=== PATIENT | female | born 1970 | race Hispanic/Latino ===

== ENCOUNTER 2018-09-13 10:23 | Outpatient (CLI) | payer OTHER ==
--- NOTE | 2018-09-13 14:36 | PET ---
PET CT: HISTORY: A 48-year-old female with recently diagnosed esophageal cancer on biopsy of 08/27/2018. Exam is reques sarah for initial staging. TECHNIQUE: PET scanning with CT attenuation correction was performed from the base of the brain through the prox imal thighs following the intravenous administration of 12.3 mCi [id number] in the left a ntecubital fossa. COMPARISON: None. CORRELATION: None. FINDINGS: There is increased FDG localization of the distal thoracic esophagus with an SUV of 14, consistent wi th malignancy. No daria hypermetabolism is seen in the cervical, mediastinal, hilar, axillary, retrocrural, gastrohe patic, main portal, mesenteric, retroperitoneal, or pelvic lymph nodes. No hypermetabolic pulmonary nodules, liver, adrenal, or skeletal lesions are seen. There physiologic activity in the GI and tracts and the visualized portions of the brain. The CT scan used for attenuation correction demonstrates no evidence of pleural or pericardial effusi ons or ascites. There is a 4.5 cm left adnexal mass which does not demonstrate abnormal FDG localiza tion. The patient is post hysterectomy. IMPRESSION: 1. Esophageal malignancy without evidence of metastatic disease. 2. A 4.5 cm left adnexal mass. This should be evaluated with pelvic ultrasound. POS: [place]
== END 2018-09-13 10:24 | disposition home or self-care (01) ==
LOC: PET 10:23
PROVIDERS: ATTEND Internal Medicine Hematology & Oncology
DX: C15.9 Malignant neoplasm of esophagus, unspecified (principal); N83.8 Other noninflammatory disorders of ovary, fallopian tube and broad ligament
CPT/HCPCS: 78815; A9552

== ENCOUNTER 2018-09-14 21:52 | Observation (INO) | payer OTHER ==
--- NOTE | 2018-09-14 23:45 | RAD ---
XR Chest 1 View Portable HISTORY: Epigastric pain COMPARISON: None FINDINGS: The heart size is normal. The lungs are well expanded without focal areas of consolidation, pneumothorax or pleural effusions. IMPRESSION: No radiographic evidence of acute cardiopulmonary process.
[2018-09-14 23:48] LABS: #Eosinphils 0.2 thou/uL (0.0-0.7); #Lymphocytes 1.7 thou/uL (1.20-3.40); #Monocytes 0.5 thou/uL (0.11-0.59); #Neutrophils 4.7 thou/uL (1.40-6.50); %Basophils 0.6 % (0.0-1.0); %Eosinophils 2.9 % (0.0-10.0); %Lymphocytes 23.4 % (21.0-51.0); %Monocytes 7.1 % (0.0-10.0); %Neutrophils 66.2 % (42.0-75.0); Hemoglobin 12.6 g/dL (12.0-16.0); Mean Corpuscular HGB CONC 33.3 g/dL (32.0-36.0); Mean Corpuscular Hemoglobin 32.6 pg (27.0-31.0); Mean Corpuscular Volume 97.6 fL (78.0-98.0); Mean Platelet Volume 7.6 fL (7.4-10.4); Platelet Count 308 thou/uL (130-400); RBC Distribution Width 12.9 % (11.5-14.5); Red Blood Cell (RBC) Count 3.86 mill/uL (4.20-5.40); White Blood Cell (WBC) Count 7.1 thou/uL (4.8-10.8)
[2018-09-15 00:08] LABS: ALT (SGPT) 18 U/L (8-55); AST (SGOT) 17 U/L (5-34); Albumin 3.9 g/dL (3.5-5.0); Alkaline Phosphatase 97 U/L (40-150); Anion Gap 12 mmol/L (10-20); BUN (Urea Nitrogen) 12 mg/dL (7.0-18.7); Bilirubin, Total 0.8 mg/dL (0.2-1.2); Calc. Creatinine Clearance 0 mL/min (70-130); Calcium 9.3 mg/dL (7.8-10.44); Carbon Dioxide 26 mmol/L (22-29); Chloride 104 mmol/L (98-107); Estimated GFR-MDRD 87; Globulin 3.4 g/dL (2.4-3.5); Glucose 143 mg/dL (70-105); Lipase 10 U/L (8-78); Protein, Total 7.3 g/dL (6.0-8.3); Sodium 138 mmol/L (136-145)
[2018-09-15] MEDS ORDERED: Morphine 4 MG/ML VIAL ONE ×2 (00:41→02:50)
[2018-09-15] MEDS ORDERED: Ondansetron PF 4 MG/2 ML Vial ONE (02:50)
[2018-09-15] MEDS ORDERED: Morphine 4 MG/ML VIAL SLOW IVP PRN ×2 (03:25→08:10)
[2018-09-15] MEDS ORDERED: Ondansetron PF 4 MG/2 ML Vial IVP PRN ×2 (03:26→08:10)
[2018-09-15] MEDS ORDERED: Ondansetron ODT 4 MG TAB SL PRN (03:26)
[2018-09-15] MEDS ORDERED: Sodium Chloride 0.9% 1,000 ML IV SCH (03:30)
[2018-09-15 03:34] VITALS: BMI 41.8
--- NOTE | 2018-09-15 07:39 | CT ---
CT ABDOMEN AND PELVIS WITH CONTRAST: Date: 09/15/18 INDICATION: Abdominal pain. Reference made to abdomen and pelvis CT dated 06/10/13. FINDINGS: Incidentally noted, there is wall thickening of the imaged distal esophagus with adjacent, paraesopha geal soft tissue density that may represent necrotic adenopathy given a central low density. This melony sures approximately 2 cm in diameter. There is mild diminished attenuation of the liver, which may be on the basis of hepatic steatosis. No acute inflammation of the gallbladder is seen. No hydronephros is of either kidney. No adrenal mass. No peripancreatic inflammation. The bowel is incompletely asses sed without the presence of enteric contrast. There is a left adnexal hypodensity, which, when compar ing to prior exam, has increased in volume. Finding measures slightly greater than 5 cm in diameter. No free air. No ascites. Osseous structures reveal no acute process. IMPRESSION: 1. Distal esophageal mass-like prominence, as well as adjacent, presumed necrotic adenopathy. 2. Large left adnexal hypodense mass. Dedicated pelvic ultrasound is warranted to further characteri ze. 3. Additional details are described above. POS: [place]
[2018-09-15] MEDS ORDERED: hydrALAZINE 20 MG/ML VIAL SLOW IVP PRN (08:10)
[2018-09-15] MEDS ORDERED: Acetaminophen 500 MG TAB PO PRN (08:10)
[2018-09-15] MEDS ORDERED: HYDROcodone/Acetaminophen 10/325 mg Tablet PO PRN (08:10)
[2018-09-15] MEDS ORDERED: Ondansetron ODT 4 MG TAB PO PRN (08:10)
[2018-09-15] MEDS: Famotidine 20 MG TAB PO SCH ×2 (08:42→20:04)
[2018-09-15] MEDS: Sodium Chloride 0.9% 1,000 ML IV SCH ×3 (08:43→20:41)
[2018-09-15] MEDS ORDERED: ISOVUE-370 76%-LOCM 1 ML ONE (11:29)
[2018-09-15] MEDS: HYDROcodone/Acetaminophen 10/325 mg Tablet PO PRN ×2 (12:06→18:31)
--- NOTE | 2018-09-15 13:21 | HP ---
PRIMARY CARE PROVIDER: Volodymyr Lara MD CHIEF COMPLAINT: Abdominal pain. HISTORY OF PRESENT ILLNESS: This is a 48-year-old female, who presented to [facility] Emergency Department complaining of less than 1-day history of increased abdominal pain and difficulty swallowing after apparently eating a hot dog. The patient's history significant for recent diagnosis of moderately differentiated adenocarcinoma of the esophagus. However, she has not started the treatment protocol. The patient in early stages of staging currently and will have followup with Medical Oncology in the next 3 to 5 days. The patient states that she typically eats a soft diet due to the esophageal cancer, but attempted to eat a hot dog in the last 24 hours and had increased pain in her abdominal area. The patient had an episode of emesis with the pain and became panicked, calling EMS personnel. The patient states she has some pain medication at home including [place], but was unable to take this due to the accelerated pain that she experienced. The patient states most of the pain localizes in the midepigastric region with some radiation to the central portion of her chest. The patient states it has improved after receiving IV morphine sulfate in the emergency room as well as Zofran. The patient was also treated with IV fluids. The patient states her bowel movements have been regular and denies any hematemesis or melena. The patient denies any specific fever, chills, or shortness of breath. PAST MEDICAL HISTORY: Moderately differentiated esophageal adenocarcinoma. PAST SURGICAL HISTORY: 1. Status post hysterectomy. 2. Status post EGD confirming esophageal mass. CURRENT MEDICATIONS: [place] 10/325 mg 1 to 2 tablets p.o. q.4 to 6 hours p.r.n. ALLERGIES: NO KNOWN DRUG ALLERGIES. FAMILY HISTORY: No inheritable diseases per the patient's report. SOCIAL HISTORY: The patient resides in [place], [place]. Unemployed. Drinks alcohol weekly. No tobacco or illicit drug use. REVIEW OF SYSTEMS: CONSTITUTIONAL: Negative for weight loss or gain, ability to conduct usual activities. SKIN: Negative for rash, itching. EYES: Negative for double vision, pain. ENT/MOUTH: Negative for nose bleeding, neck stiffness, pain, tenderness. CARDIOVASCULAR: Negative for palpitations, dyspnea on exertion, orthopnea. RESPIRATORY: Negative for shortness of breath, wheezing, cough, hemoptysis, fever or night sweats. GASTROINTESTINAL: Negative for poor appetite, abdominal pain, heartburn, nausea, vomiting, constipation, or diarrhea. GENITOURINARY: Negative for urgency, frequency, dysuria, nocturia. MUSCULOSKELETAL: Negative for pain, swelling. NEUROLOGIC/PSYCHIATRIC: Negative for anxiety, depression. ALLERGY/IMMUNOLOGIC: Negative for skin rash, bleeding tendency. Otherwise, negative except as stated per HPI. PHYSICAL EXAMINATION: VITAL SIGNS: On admission; blood pressure 117/66, pulse 81; respiratory rate 20, temperature 97.8 degrees Fahrenheit, and O2 saturation 94% on room air. GENERAL APPEARANCE: This is a 48-year-old female, alert and oriented x3, pleasant, conversant, in no acute distress. HEENT: Pupils are equal, round, and reactive to light and accommodation. Extraocular muscles are intact. No scleral icterus. No conjunctival injection. Nares patent. OP is clear. Teeth in fair repair. NECK: Supple. No cervical adenopathy. No thyromegaly. No carotid bruits. No JVD appreciated. No meningeal signs noted. CHEST: Lungs are clear to auscultation bilaterally. CARDIOVASCULAR: S1 and S2 without noted murmur, rub, or gallop. ABDOMEN: Obese, soft with mild tenderness to palpation in the midepigastric region. No palpable mass. Landmarks are difficult to palpate due to the patient's body habitus. Bowel sounds are positive in all 4 quadrants. EXTREMITIES: Warm and dry with fair turgor. No clubbing, cyanosis, or asymmetric edema appreciated. Pulses palpable distally at the dorsalis pedis, posterior tibial, and popliteal arteries bilaterally. Capillary refill less than 2 seconds. NEUROLOGIC: Cranial nerves II through XII are grossly intact. No focal or lateralizing signs appreciated. PERTINENT LABORATORY AND X-RAY FINDINGS: Complete metabolic profile within normal limits. CBC within normal limits. CT of the abdomen and pelvis dated 09/15/2018, showed distal esophageal mass consistent with esophageal carcinoma. Large left adnexal hypodense mass noted. Portable chest x-ray dated 09/14/2018 showed no acute cardiopulmonary process. EKG dated 09/14/2018 by my interpretation shows sinus mechanism with heart rates in the 70s. Normal R-wave progression noted in the precordial leads. Normal axis. No acute ST-T wave changes appreciated. ASSESSMENT AND PLAN: 1. Abdominal pain secondarily to esophageal adenocarcinoma and likely dysphagia after eating a meal. We will continue supportive management including IV fluids with normal saline at 75 mL/h. Morphine sulfate 4 mg IV q.4 hours p.r.n. Serial abdominal exams. 2. Moderately differentiated esophageal adenocarcinoma. We will continue supportive management. Medical Oncology consultation. The patient is currently under no specific treatment plan in the process of staging as an outpatient. 3. Nausea and vomiting secondarily to abdominal pain, improved. We will continue intravenous normal saline at 75 mL/h. Zofran 4 mg IV q.6 hours p.r.n. 4. Dysphagia secondarily to moderately differentiated esophageal adenocarcinoma. We will initiate trial of mechanical soft diet and monitor clinical response. Continue Pepcid 20 mg p.o. b.i.d. 5. Prophylaxis. SCDs while in bed. Pepcid 20 mg p.o. b.i.d. 6. Code status is full. Surrogate medical decision maker is Monique Bravo. Job ID: [id number]
[2018-09-16] MEDS ORDERED: Lorazepam 0.5 MG TAB PO PRN (00:56)
[2018-09-16] MEDS ORDERED: Morphine IR Tab 15 MG TAB PO PRN (00:56)
[2018-09-16] MEDS: Famotidine 20 MG TAB PO SCH (07:07)
[2018-09-16] MEDS: Sodium Chloride 0.9% 1,000 ML IV SCH (07:08)
[2018-09-16] MEDS ORDERED: Morphine ER 15 MG TAB PO SCH (09:00)
--- NOTE | 2018-09-16 09:30 | CT ---
CT CHEST WITH CONTRAST: Date: 09/16/18 Multiple axial tomograms obtained through chest with IV enhancement. INDICATION: Esophageal adenocarcinoma. Correlation made to PET CT dated 09/13/[address] dated 09/15/18. No prior chest CT ronnie ilable. FINDINGS: The lungs are well aerated and are clear. No infiltrate or effusion. Minimal atelectasis in the poste rior left lung base. Review of the mediastinum reveals mural thickening of the distal esophagus, unch anged in appearance from the CT of 09/15/18. There is an adjacent lymph node located in the lower chandra[address] st just above the diaphragm located anterior to the aorta and abutting the right wall of the esophagu s measuring 2.2 cm. Just beyond the diaphragmatic hiatus in the upper abdomen, precrural location, just inferior to the E G junction, are two enlarged lymph nodes, each measuring approximately 2.0 cm. Nonspecific mediastinal paratracheal lymph nodes are seen in the upper mediastinum. These are subcent imeter. Nonspecific bilateral axillary lymph nodes measuring up to 1.0 cm. Thyroid is unremarkable. Osseous s tructures unremarkable. IMPRESSION: Mural thickening of distal esophagus with associated adenopathy in the lower chest and upper abdomen as described. POS: OFF
[2018-09-16] MEDS ORDERED: ISOVUE-370 76%-LOCM 1 ML ONE (12:57)
[2018-09-16 16:21] VITALS: BP 118/80; TEMP 98.2
--- NOTE | 2018-09-17 11:31 | CON ---
DATE OF CONSULTATION: 09/15/2018 HISTORY OF PRESENT ILLNESS: Ms. Chase is a 48-year-old female with a recent diagnosis of esophageal adenocarcinoma, who presented to the emergency room with intractable abdominal pain. She states she was taking hydrocodone at home and it was not working. She is also quite nervous and anxious and was tearful on the phone when she called and was proceeding to the emergency room. She states that now her pain is marginally better with the morphine that she is getting, but she still hurts on the left side. She denies any chest pain or other back pain or bone pain. She is here simply for pain control. PAST MEDICAL HISTORY: Recent diagnosis of esophageal cancer. CURRENT MEDICATIONS: 1. Tylenol p.r.n. 2. [place] 10/325 one tab p.o. q.4 hours p.r.n. 3. Pepcid 20 mg p.o. b.i.d. 4. Hydralazine 10 mg IV q.4 hours p.r.n. 5. Morphine 4 mg IV q.4 hours p.r.n. 6. Zofran ODT 4 mg p.o. q.6 hours p.r.n. ALLERGIES: NO KNOWN DRUG ALLERGIES. SOCIAL HISTORY: She is here with a very large family. She lives in the [facility]. She denies excessive tobacco or alcohol use. REVIEW OF SYSTEMS: Otherwise, 10-point review of systems is negative. FAMILY HISTORY: No history of GI or esophageal malignancies that she is aware of. PHYSICAL EXAMINATION: GENERAL: She is quite obese, in no acute distress. She is alert, awake, and oriented x3, pleasant. VITAL SIGNS: Temperature 98.0, pulse 73, respirations 18, O2 saturations 97% on room air, blood pressure 114/76. HEENT: Extraocular muscles are intact. Pupils are reactive to light. She has no oral cavity lesions. NECK: Supple without lymphadenopathy. CARDIOVASCULAR: Regular rhythm. LUNGS: Clear to auscultation bilaterally. ABDOMEN: Morbidly obese, soft. Tender in the left upper quadrant and mid epigastric area, but no rebounding or guarding. EXTREMITIES: No edema. LABORATORY DATA: White blood cell count 7.1, hemoglobin 12.6, platelets 308. Sodium 138, potassium 4.0, chloride 104, CO2 of 26, creatinine 0.7, glucose 143. CT of the abdomen and pelvis done in the emergency room showed a distal esophageal mass like prominence as well as adjacent presumed necrotic adenopathy, the result was large adnexal mass seen. PET scan done prior to this admission shows esophageal motility without evidence of metastatic disease, but there was a 4.5 cm left adnexal mass which needed to evaluated with pelvic ultrasound. ASSESSMENT: 1. Ms. Chase is a 48-year-old female with intractable abdominal pain secondary to esophageal adenocarcinoma. 2. Anxiety. PLAN: 1. I would recommend that we add long-acting morphine at a low dose, so hopefully she can stay ahead of her abdominal pain. 2. I would recommend adding anxiolytics. 3. She can follow up with us as an outpatient. Job ID: [id number]
--- NOTE | 2018-09-18 02:21 | DIS ---
DATE OF ADMISSION: 09/15/2018 DATE OF DISCHARGE: 09/16/2018 ADMITTING DIAGNOSES: Abdominal pain and esophageal adenocarcinoma. DISCHARGE DIAGNOSES: Abdominal pain, resolved. Esophageal adenocarcinoma, stable. HOSPITAL COURSE: This is a 48-year-old female presented to the hospital with significant abdominal pain. The patient was admitted to Internal Medicine Team, given pain medications, pain management as well. Had a consultation done with Oncology and a CT scan of her chest as well during her stay here. The patient's CT scan of her chest showed mural thickening of the distal esophagus associated with adenopathy in the lower chest as well as some changes in her upper abdomen consisting of mural thickening. The patient had evaluation done by her oncologist as well, who started her on pain medication. The patient was advised to follow up with oncologist the next day for further management and care, repeat CT scans for her cancer and staging. The patient at point in time of discharge was stable. Denied any nausea, vomiting, diarrhea, constipation, chest pain, fevers, chills, or shortness of breath. Advised once again to follow up with PCP within 1 to 2 weeks for further management and care. The patient's condition was stable. Case and plan discussed with the patient and family and friends at length. They understand and agree with this plan. DISPOSITION: Home. FOLLOWUP: Follow up with PCP within 1 week. Oncology within 1-2 days. MEDICATIONS: See MAR. ACTIVITY: As tolerated with assistance as needed. DIET: Low-fat, low-calorie, high-fiber diet. CONDITION: Stable. PROGNOSIS: Guarded. Case and plan again discussed with the patient and family at length. They understood and agreed with this plan. Job ID: [id number]
== END 2018-09-16 17:15 | disposition home or self-care (01) ==
LOC: ERS 21:52 → T4-B 09-15 02:12
PROVIDERS: ADMIT Hospitalist; ATTEND Hospitalist
DX: C15.9 Malignant neoplasm of esophagus, unspecified (principal); R13.10 Dysphagia, unspecified; R11.2 Nausea with vomiting, unspecified; F41.9 Anxiety disorder, unspecified
CPT/HCPCS: 36415; 71045; 71260; 74177; 80053; 83690; 84484; 85025; 93005; 96361; 96374; 96375; 96376; G0378; J2270; J2405; Q9966

== ENCOUNTER 2018-10-22 16:23 | Emergency (ER) | payer OTHER ==
[~2018-10-22 16:23] MED LIST: ISOVUE-370 76%-LOCM 1 ML ONE
[2018-10-22 17:23] LABS: #Lymphocytes 0.1 thou/uL (1.20-3.40); #Monocytes 0.1 thou/uL (0.11-0.59); #Neutrophils 1.7 thou/uL (1.40-6.50); %Basophils 1.9 % (0.0-1.0); %Eosinophils 2.3 % (0.0-10.0); %Lymphocytes 6.4 % (21.0-51.0); %Monocytes 6.5 % (0.0-10.0); Hemoglobin 11.2 g/dL (12.0-16.0); Mean Corpuscular HGB CONC 34.9 g/dL (32.0-36.0); Mean Corpuscular Hemoglobin 32.7 pg (27.0-31.0); Mean Corpuscular Volume 93.6 fL (78.0-98.0); Mean Platelet Volume 7.2 fL (7.4-10.4); Platelet Count 182 thou/uL (130-400); RBC Distribution Width 12.6 % (11.5-14.5); Red Blood Cell (RBC) Count 3.43 mill/uL (4.20-5.40)
[2018-10-22 17:47] LABS: ALT (SGPT) 12 U/L (8-55); AST (SGOT) 10 U/L (5-34); Albumin 3.6 g/dL (3.5-5.0); Alkaline Phosphatase 77 U/L (40-150); Anion Gap 12 mmol/L (10-20); BUN (Urea Nitrogen) 13 mg/dL (7.0-18.7); Bilirubin, Total 0.6 mg/dL (0.2-1.2); Calc. Creatinine Clearance 0 mL/min (70-130); Calcium 8.8 mg/dL (7.8-10.44); Carbon Dioxide 26 mmol/L (22-29); Chloride 104 mmol/L (98-107); Estimated GFR-MDRD Greater than 90; Globulin 2.9 g/dL (2.4-3.5); Glucose 145 mg/dL (70-105); Potassium 3.7 mmol/L (3.5-5.1); Protein, Total 6.5 g/dL (6.0-8.3); Sodium 138 mmol/L (136-145)
--- NOTE | 2018-10-22 17:58 | CT ---
EXAM: CT chest, abdomen, and pelvis with IV contrast: HISTORY: Left upper quadrant abdominal pain. Adenocarcinoma of esophagus. COMPARISON: CT thorax on 09/16/[address] abdomen and pelvis on 09/15/2018. FINDINGS: CT THORAX: Lungs: No consolidation, suspicious pulmonary nodule, or mass. Minimal atelectasis is present in the lingula and at the left lung base. Pleura: No pleural effusion. Lymph nodes: As noted on the prior exam, there is an enlarged lymph node in the left paraesophageal l ocation just anterior to the thoracic aorta measuring 1.4 cm in short axis dimension. A few additional smaller mediastinal lymph nodes are seen, but no additional enlarged lymph nodes are appre ciated. Mediastinum: There is thickening of the distal esophagus circumferentially which was also noted on pr ior exam. Chest wall: No abnormalities. Osseous structures: There is a hemangioma seen in the T4 vertebral body. Mild degenerative changes ar e seen in the thoracic spine. No additional lytic or sclerotic osseous lesions are seen. CT ABDOMEN AND PELVIS: Liver: Few scattered tiny subcentimeter hypodense lesions are seen in each lobe of the liver which ar e too small to further characterize. There are at least 4 tiny hypodense lesions visualized. These hypodense lesions are not seen on the prior study. Gallbladder: Within normal limits. \ Pancreas: Within normal limits. Spleen:Splenic granulomata are visualized. Adrenal glands: Within normal limits. Kidneys: Within normal limits. Urinary Bladder: Decompressed but otherwise within normal limits for decompressed appearance. Reproductive organs: Uterus is not visualized likely related to hysterectomy. The previously describe d hypodense cystic masslike structure in the left adnexa has decreased in size previously measuring 5.2 cm. This area has the appearance of the patient's left ovary with small follicle now present with in the ovary. Previously noted larger cystic structures likely related to interval decrease in size of left ovarian cyst. Bowel: Normal in caliber. Adenopathy:Previously noted mildly enlarged lymph node just inferior to the GE junction in the upper abdomen is again seen but is smaller in size in the current exam. This previously measured 2.1 cm in maximal dimension on prior study and now measures 1.4 cm in maximal dimension. No additional enlar ged lymph nodes are seen. Peritoneum: No free fluid or fluid collection is seen. No free intraperitoneal gas is identified. Abdominal wall: No abnormalities seen. Osseous structures: There is a sclerotic density seen within the right ischium demonstrating characte ristics most compatible with a bone island. No additional lytic or sclerotic osseous lesions are seen. IMPRESSION: 1. Stable mural thickening involving the distal esophagus likely corresponding to patient's known dara nocarcinoma of the esophagus. Closely adjacent left paraesophageal enlarged lymph node is present. 2. Subcentimeter too small to characterize hypodense lesions in each lobe of the liver. These hypoden se lesions were not visualized on prior exam. Tiny metastatic lesions cannot be entirely excluded. 3. Hysterectomy. 4. Interval decrease in size of left adnexal cystic lesion.
[2018-10-22] MEDS ORDERED: Morphine 4 MG/ML VIAL ONE (19:30)
[2018-10-22] MEDS ORDERED: Pantoprazole 40 MG VIAL ONE (19:30)
[2018-10-22] MEDS ORDERED: Ondansetron PF 4 MG/2 ML Vial ONE (19:30)
[2018-10-22] MEDS ORDERED: Sucralfate 1 GM/10 ML UDCUP ONE (19:30)
== END 2018-10-22 21:23 | disposition home or self-care (01) ==
LOC: ERS 16:23
DX: K20.9 Esophagitis, unspecified (principal)
CPT/HCPCS: 36415; 71260; 74177; 80053; 85025; 86850; 86900; 86901; 93005; C9113; J2270; J2405

== ENCOUNTER 2018-11-04 10:58 | Observation (INO) | payer OTHER ==
[2018-11-04] MEDS ORDERED: Morphine 4 MG/ML VIAL ONE ×2 (11:54→15:21)
[2018-11-04] MEDS ORDERED: Ondansetron PF 4 MG/2 ML Vial ONE (11:54)
[2018-11-04 12:16] LABS: #Lymphocytes 0.1 thou/uL (1.20-3.40); #Monocytes 0.1 thou/uL (0.11-0.59); #Neutrophils 1.9 thou/uL (1.40-6.50); %Eosinophils 0.8 % (0.0-10.0); %Lymphocytes 5.3 % (21.0-51.0); %Monocytes 4.8 % (0.0-10.0); %Neutrophils 89.1 % (42.0-75.0); Hemoglobin 11.8 g/dL (12.0-16.0); Mean Corpuscular HGB CONC 34.8 g/dL (32.0-36.0); Mean Corpuscular Hemoglobin 32.4 pg (27.0-31.0); Mean Platelet Volume 7.8 fL (7.4-10.4); Platelet Count 129 thou/uL (130-400); RBC Distribution Width 13.5 % (11.5-14.5); Red Blood Cell (RBC) Count 3.66 mill/uL (4.20-5.40); White Blood Cell (WBC) Count 2.1 thou/uL (4.8-10.8)
[2018-11-04 12:24] LABS: BHCG - Serum Negative (NEGATIVE); Pregs Control Background? CLEAR/WHITE (CLR/WHITE); Pregs Control Bar Appear? YES (CONTROL BAR)
[2018-11-04 12:37] LABS: ALT (SGPT) 16 U/L (8-55); AST (SGOT) 13 U/L (5-34); Alkaline Phosphatase 87 U/L (40-150); Anion Gap 14 mmol/L (10-20); BUN (Urea Nitrogen) 14 mg/dL (7.0-18.7); Bilirubin, Total 1.6 mg/dL (0.2-1.2); Calc. Creatinine Clearance 0 mL/min (70-130); Calcium 9.1 mg/dL (7.8-10.44); Carbon Dioxide 24 mmol/L (22-29); Chloride 102 mmol/L (98-107); Estimated GFR-MDRD Greater than 90; Glucose 153 mg/dL (70-105); Lipase Less than 4 U/L (8-78); Sodium 136 mmol/L (136-145)
[2018-11-04] MEDS ORDERED: Bacitracin Zinc 1 Packet ONE (12:57)
[2018-11-04] MEDS ORDERED: Sucralfate 1 GM/10 ML UDCUP ONE (12:57)
[2018-11-04] MEDS ORDERED: Lidocaine Viscous Sol 2% 15 ml UD Cup ONE (13:15)
[2018-11-04] MEDS ORDERED: Mag-Al 1200 mg/1200 mg/30 ML UDCUP ONE (13:15)
--- NOTE | 2018-11-04 13:21 | CT ---
CT OF THE ABDOMEN AND PELVIS WITH CONTRAST: COMPARISON: 09/15/2018. HISTORY: Stage II esophageal adenocarcinoma with stabbing left upper quadrant abdominal pain that radiates to the back. This is intermittent. TECHNIQUE: Multiple contiguous axial images were obtained in a CT of the abdomen and pelvis with contrast. Fide nal reformats were performed. FINDINGS: The patient is status post hysterectomy. The liver, gallbladder, kidneys, adrenal glands, and pancre as are unremarkable. Calcifications in the spleen are from prior granulomatous disease. The large and small bowel are unremarkable. The appendix is normal. No abdominal or pelvic lymphade nopathy are seen. There is questionable circumferential thickening of the distal esophagus seen on the uppermost images . There is a 1.6 cm nodule anterior to the aorta which may represent an enlarged paraesophageal lymp h node. The visualized inferior thorax is otherwise unremarkable. No suspicious osseous lesions are seen. The abdominal wall soft tissues are unremarkable. IMPRESSION: 1. No evidence of acute intraabdominal/pelvic abnormality. 2. Possible circumferential distal esophageal thickening. This likely represent the patient's known esophageal malignancy with an adjacent enlarged paraesophageal lymph node. POS: [facility]
[2018-11-04 14:18] LABS: Bilirubin Negative (Negative); Blood, Urine Negative (Negative); Clarity CLEAR (Clear); Glucose, Urine (Dipstick) 100 mg/dL (Negative); Leukocyte Negative (Negative); Nitrite Negative (Negative); Protein, Urine (Dipstick) Negative (Neg-Trace)
[2018-11-04 14:25] LABS: Specific Gravity, Urine 1.058 (1.002-1.036)
[2018-11-04] MEDS ORDERED: Promethazine HCl 25 MG/ML VIAL ONE (15:22)
[2018-11-04] MEDS ORDERED: Dexamethasone 10 MG/ML VIAL ONE (15:24)
[2018-11-04] MEDS ORDERED: Promethazine HCl 25 MG/ML VIAL IM/IV PRN (16:43)
[2018-11-04] MEDS ORDERED: Ondansetron PF 4 MG/2 ML Vial IVP PRN (16:43)
[2018-11-04] MEDS ORDERED: Dexamethasone 10 MG in Sodium Chloride 0.9% 50 ML IVPB SCH (16:45)
[2018-11-04] MEDS ORDERED: Morphine 2 MG/ML SYRINGE SLOW IVP PRN (17:07)
[2018-11-04] MEDS ORDERED: Senokot S 8.6-50 MG TAB PO PRN (17:08)
[2018-11-04] MEDS ORDERED: HYDROcodone/Acetaminophen 10/325 mg Tablet PO PRN ×2 (17:08)
[2018-11-04] MEDS ORDERED: Acetaminophen 325 MG TAB PO PRN (17:08)
[2018-11-04] MEDS ORDERED: Lorazepam 0.5 MG TAB PO PRN (17:08)
[2018-11-04] MEDS ORDERED: ISOVUE-370 76%-LOCM 1 ML ONE (17:17)
[2018-11-04] MEDS: Sodium Chloride 0.9% 1,000 ML IV SCH (17:36)
[2018-11-04 17:39] VITALS: BMI 40.5
[2018-11-04] MEDS: Pantoprazole 40 MG VIAL IVP SCH (20:47)
[2018-11-04] MEDS: Sucralfate 1 GM TAB PO SCH (20:47)
[2018-11-04] MEDS ORDERED: Dexamethasone 10 MG/ML VIAL SLOW IVP SCH (23:00)
--- NOTE | 2018-11-04 23:18 | HP ---
PRIMARY CARE PHYSICIAN: Volodymyr Lara MD CHIEF COMPLAINT: Abdominal pain, nausea, vomiting. HISTORY OF PRESENT ILLNESS: Ms. Chase is a pleasant 48-year-old female with a past medical history of esophageal adenocarcinoma, who had presented to [facility] earlier today after she experienced increased abdominal pain along with nausea, vomiting x2 episodes. She states symptoms started yesterday afternoon when she had noticed that her blood pressure slowly dropping and she overall did not feel well. She states that she has undergone several treatments of chemo and radiation, and she is scheduled to undergo her last round of radiation and chemotherapy this week with radiation tomorrow morning with Dr. Leger. She states that her primary oncologist is Dr. Laboy. The ED staff contacted Dr. Fuentes, who is now consulted, who had recommended the patient be started on IV Decadron, IV Zofran and Phenergan along with some IV normal saline for hydration. It was also recommended the patient be brought in under observation for close monitoring overnight and possibly discharged in the next 24 to 48 hours. The patient had denied any fever, chills, any headache, blurred vision, dizziness, any chest pain, palpitations. She states that she has had about 2 episodes of vomiting, which had contained a green yellow emesis. She was recently seen in the emergency department and started on Carafate along with Protonix, which has helped with her symptoms. She had denied any diarrhea or constipation. However, she has had problems with this in the past and had tolerated an outpatient [id number] bowel regimen. Currently, the patient's vital signs remained stable with a blood pressure of 108/71, pulse of 101, respirations 17, temp 99.2 degrees Fahrenheit, and O2 saturations 98% on room air. CT abdomen and pelvis was also performed in the emergency department, which showed no evidence of acute intraabdominal pelvic abnormality, however, did show possible circumferential distal esophageal thickening, which is likely passenger relations representative of the underlying esophageal malignancy with an adjacent enlarged paraesophageal lymph node. REVIEW OF SYSTEMS: All other systems reviewed and found to be negative unless mentioned in the HPI. PAST MEDICAL HISTORY: Esophageal adenocarcinoma, currently undergoing chemo and radiation therapy. PAST SURGICAL HISTORY: Hysterectomy. PSYCHIATRIC HISTORY: None. SOCIAL HISTORY: The patient denies any alcohol, tobacco, or illicit drug use. She states she lives at home with family. KNOWN ALLERGIES: No known drug allergies. CURRENT MEDICATIONS: 1. Morphine 50 mg oral twice daily. 2. Zofran ODT 8 mg oral as needed for nausea. 3. Lorazepam 0.5 mg oral as needed for anxiety. 4. Hydrocodone/acetaminophen 10/325 mg 1-2 tabs oral as needed for pain. 5. Protonix 40 mg oral twice daily. 6. Carafate 1 g oral 4 times daily. PHYSICAL EXAMINATION: VITAL SIGNS: BP 108/71, pulse 101, respirations 17, temp 99.2 degrees Fahrenheit, and O2 saturations 97% on room air. GENERAL: The patient is awake, alert, and oriented x3. She is currently lying comfortably in bed and in no acute distress. Family is at bedside. HEENT: Atraumatic, normocephalic. Pupils are round and reactive to light. Extraocular muscles intact. Moist mucous membranes noted. NECK: Soft, supple. Trachea midline. CARDIOVASCULAR: Positive S1 and S2. Regular rate and rhythm. No murmur auscultated. RESPIRATORY: Clear to auscultation bilaterally. No wheezes, rales, or rhonchi. ABDOMEN: Soft. Mild tenderness in the left upper quadrant, otherwise exam benign. Bowel sounds present. MUSCULOSKELETAL: Strength 5+ bilaterally in upper and lower extremities. Moves all extremities equal. Pedal and radial pulses palpable 2+ bilaterally. No edema noted. NEUROLOGIC: Cranial nerves 2 through 12 grossly intact. No focal deficits noted. Speech intact and normal. Gait not assessed. SKIN: Warm, dry, and intact. No rashes. No ulceration noted. PSYCHIATRIC: Good mood and affect. LABORATORY DATA: WBC 2.1, RBC 3.66, hemoglobin 11.8, hematocrit 34, platelet 129. Sodium 136, potassium 4.0, anion gap 14, BUN 14, creatinine 0.66, estimated GFR greater than 90, glucose 153, lactic acid 1.2, calcium 9.1, AST 13, ALT 16. Troponin less than 0.010. Lipase less than 4. Serum negative. Urinalysis shows specific gravity of 1.058 and 100 glucose, otherwise unremarkable. DIAGNOSTIC IMAGING: CT abdomen and pelvis with contrast showed no acute intraabdominal pelvic abnormality, however, did show possible circumferential distal esophageal thickening which could represent patient's known esophageal malignancy with an adjacent enlarged paraesophageal lymph node. ASSESSMENT AND PLAN: 1. Esophageal adenocarcinoma, Dr. Fuentes and Dr. Leger will be consulted during hospital course, she is scheduled for radiation therapy in the morning tomorrow. Dr. Fuentes recommended IV Decadron, IV Zofran and Phenergan along with IV morphine for pain control. She will also be continued on her home regimen. 2. Abdominal pain, nausea, vomiting, as above the patient will be managed with supportive and symptomatic management at this time. 3. Deep venous thrombosis and gastrointestinal prophylaxis. 4. Code status, full code. DISPOSITION: The patient will be treated with symptomatic management at this time and when she is feeling better and is able to better tolerate oral intake, she will likely be discharged home in the next 24 to 48 hours. Job ID: [id number]
[2018-11-04] MEDS: Dexamethasone 10 MG/ML VIAL SLOW IVP SCH (23:44)
[2018-11-05] MEDS: Sodium Chloride 0.9% 1,000 ML IV SCH ×2 (03:39→12:23)
[2018-11-05 05:07] LABS: #Lymphocytes 0.1 thou/uL (1.20-3.40); #Neutrophils 1.5 thou/uL (1.40-6.50); %Basophils 0.6 % (0.0-1.0); %Eosinophils 0.1 % (0.0-10.0); %Lymphocytes 4.5 % (21.0-51.0); %Monocytes 1.2 % (0.0-10.0); %Neutrophils 93.6 % (42.0-75.0); Hemoglobin 11.2 g/dL (12.0-16.0); Mean Corpuscular HGB CONC 34.4 g/dL (32.0-36.0); Mean Platelet Volume 7.6 fL (7.4-10.4); Platelet Count 128 thou/uL (130-400); RBC Distribution Width 13.6 % (11.5-14.5); Red Blood Cell (RBC) Count 3.48 mill/uL (4.20-5.40); White Blood Cell (WBC) Count 1.7 thou/uL (4.8-10.8)
[2018-11-05 05:18] LABS: Anion Gap 10 mmol/L (10-20); BUN (Urea Nitrogen) 12 mg/dL (7.0-18.7); Calc. Creatinine Clearance 186 mL/min (70-130); Calcium 9.2 mg/dL (7.8-10.44); Carbon Dioxide 24 mmol/L (22-29); Chloride 106 mmol/L (98-107); Estimated GFR-MDRD Greater than 90; Glucose 250 mg/dL (70-105); Potassium 4.7 mmol/L (3.5-5.1); Sodium 135 mmol/L (136-145)
[2018-11-05] MEDS: Pantoprazole 40 MG VIAL IVP SCH (07:43)
[2018-11-05] MEDS: Sucralfate 1 GM TAB PO SCH ×2 (07:43→11:39)
[2018-11-05] MEDS: Dexamethasone 10 MG/ML VIAL SLOW IVP SCH (07:43)
[2018-11-05 12:24] VITALS: TEMP 97.4
[2018-11-05 12:38] VITALS: BP 131/95
--- NOTE | 2018-11-05 15:06 | CON ---
DATE OF CONSULTATION: REASON FOR CONSULTATION: Esophageal adenocarcinoma. HISTORY OF PRESENT ILLNESS: A 48-year-old female with stage IV-A esophageal adenocarcinoma, currently on concurrent chemotherapy and radiation with Carbo/Taxol. Last chemotherapy received on October. The patient came to the hospital with nausea, vomiting, and pain and dehydration with hypotension at home. She states since Monday she has been unable to keep herself hydrated. She had constipation and took magnesium citrate, which caused her to have diarrhea in addition to her vomiting and she was very dehydrated. She states she was trying to make it until Monday, so she could come to the clinic for fluids, but was too weak yesterday, so came to the ER and was admitted for IV hydration and antiemetic therapy. Since admission to the hospital, the patient feels "100% better." She has no more nausea at this time and her pain is much better controlled. She denies any fevers, shortness of breath, or other symptoms. REVIEW OF SYSTEMS: Ten-point review of systems negative except as per HPI. PAST MEDICAL HISTORY: Esophageal cancer. PAST SURGICAL HISTORY: Hysterectomy. SOCIAL HISTORY: No alcohol, tobacco, or illicit drug use. ALLERGIES: NO KNOWN DRUG ALLERGIES. CURRENT MEDICATIONS: Reviewed. PHYSICAL EXAMINATION: GENERAL APPEARANCE: The patient is lying in bed, in no acute distress. VITAL SIGNS: Temperature 98.2, pulse 83, respirations 16, saturating 97% on room air, and blood pressure 133/87. HEENT: Normocephalic and atraumatic. NECK: Supple. CARDIOVASCULAR: S1 and S2. No tachycardia noted. RESPIRATIONS: Nonlabored. ABDOMEN: Obese, soft, nondistended, and nontender. NEUROLOGIC: Cranial nerves 2 through 12 grossly intact. PSYCHIATRIC: Awake, alert, and oriented x3. LABORATORY DATA: White blood cells 1.7, hemoglobin 11.2, and platelets 128. Sodium 135, potassium 4.7, BUN 12, creatinine 0.68, glucose 250, and calcium 9.2. IMAGING DATA: CT abdomen and pelvis on November 04, 2018, shows no acute abnormalities, however, does show circumferential distal esophageal thickening and a large paraesophageal lymph node, both consistent with the patient's known cancer. ASSESSMENT AND PLAN: A 48-year-old female with stage IV-A esophageal adenocarcinoma, currently on chemotherapy and radiation, presenting to the hospital with nausea, vomiting, dehydration, and hypotension. The patient has received fluid resuscitation and IV antiemetics and pain control and is doing much better. The patient may be discharged and follow up with me and Dr. Leger in clinic. She has an appointment to see me on , November 08 for her last dose of chemotherapy and will follow with her surgeon the following week. She can continue with and received radiation today. Thank for this consult. Job ID: [id number]
--- NOTE | 2018-11-06 04:42 | DIS ---
DATE OF ADMISSION: 11/04/2018 DATE OF DISCHARGE: 11/05/2018 PRIMARY CARE PHYSICIAN: Volodymyr Lara MD PROCEDURE PERFORMED: CT of the abdomen and pelvis. IMPRESSION: 1. No evidence of acute intraabdominal pelvic abnormality. 2. Possible circumferential distal esophageal thickening, this likely represents the patient's known esophageal malignancy with an adjacent enlarged paraesophageal lymph node. CONSULTATIONS: Dr. Laboy and Dr. Fuentes. HOSPITAL COURSE: The patient is a 48-year-old female, who presented to the ER with a chief complaint of abdominal pain, nausea and vomiting x2 days. She has past medical history of esophageal adenocarcinoma on chemo and radiation by Dr. Laboy. Her next radiation treatment would be today. In the ER, Dr. Fuentes was consulted as the on-call oncologist. He recommended IV fluid resuscitation, Decadron, Zofran, and Phenergan with some morphine for pain control and admitted to the observation unit for 24 to 48 hours monitoring. In the ER, CT was done which was negative for any acute abnormal process and did show some distal esophageal circumferential thickening with adjacent paraesophageal lymph node enlargement, most likely related to the patient's diagnosis of esophageal cancer. The patient was also found to be neutropenic with white blood cell count of 2.1 and upon discharge was 1.7. The patient's symptoms did improve on the antiemetics and pain control with IV fluid resuscitation, and she did attend her radiation therapy today per Dr. Laboy's instructions. MEDICATIONS: 1. [place] 5/325, 1 to 2 tabs p.o. q.4 p.r.n. pain. 2. Lorazepam 0.5 mg p.o. q.4 p.r.n. anxiety. 3. Zofran ODT 4 mg p.o. q.8 p.r.n. nausea and vomiting. 4. Prednisone 10 mg p.o. daily. 5. Promethazine 25 mg p.o. q.6 p.r.n. nausea and vomiting. 6. Carafate 1 g p.o. before meals and at bedtime. 7. Protonix 40 mg p.o. daily. DISPOSITION: Upon physical exam today, the patient reports that she is feeling much better and is ready to go home after receiving her radiation therapy. DISCHARGE INSTRUCTIONS: The patient is to follow up with PCP within the next week. The patient has a standing appointment on , November 08, with Dr. Laboy for her last dose of chemotherapy and will follow up with her surgeon in the following week. The patient is to continue all home medications. Job ID: [id number]
--- NOTE | 2018-11-10 16:51 | EKG ---
Test Reason : Blood Pressure : / mmHG Vent. Rate : 104 BPM Atrial Rate : 104 BPM P-R Int : 120 ms QRS Dur : 068 ms QT Int : 330 ms P-R-T Axes : -01 -21 -11 degrees QTc Int : 433 ms Sinus tachycardia Nonspecific T wave abnormality Abnormal ECG No ST elevation/RI Different axis Confirmed by ADARSH URBANO M.D. ([id number]), metropolitan editor BROOKLYN SMITH ([id number]) on 11/10/2018 4:51:46 PM Referred By: Confirmed By:ADARSH URBANO M.D.
== END 2018-11-05 13:53 | disposition home or self-care (01) ==
LOC: ERS 10:58 → 2SW 17:34
PROVIDERS: ADMIT Family Medicine; ATTEND Family Medicine
DX: E86.0 Dehydration (principal); R10.9 Unspecified abdominal pain; C15.9 Malignant neoplasm of esophagus, unspecified; I95.9 Hypotension, unspecified; D70.9 Neutropenia, unspecified; Z92.21 Personal history of antineoplastic chemotherapy; Z92.3 Personal history of irradiation; Z79.891 Long term (current) use of opiate analgesic; Z79.899 Other long term (current) drug therapy
CPT/HCPCS: 36415; 74177; 77386; 80048; 80053; 81003; 83605; 83690; 84484; 84703; 85025; 93005; 96361; 96365; 96375; 96376; C9113; G0378; J1100; J2270; J2405; J2550; Q9966

== ENCOUNTER 2019-01-20 15:41 | Observation (INO) | payer OTHER ==
[2019-01-20 16:30] LABS: #Eosinphils 0.1 thou/uL (0.0-0.7); #Lymphocytes 0.9 thou/uL (1.20-3.40); #Monocytes 0.5 thou/uL (0.11-0.59); #Neutrophils 4.2 thou/uL (1.40-6.50); %Basophils 0.4 % (0.0-1.0); %Eosinophils 2.2 % (0.0-10.0); %Monocytes 8.9 % (0.0-10.0); %Neutrophils 72.4 % (42.0-75.0); Hemoglobin 13.2 g/dL (12.0-16.0); Mean Corpuscular HGB CONC 34.8 g/dL (32.0-36.0); Mean Corpuscular Hemoglobin 33.7 pg (27.0-31.0); Mean Platelet Volume 6.8 fL (7.4-10.4); Platelet Count 371 thou/uL (130-400); RBC Distribution Width 15.4 % (11.5-14.5); Red Blood Cell (RBC) Count 3.92 mill/uL (4.20-5.40); White Blood Cell (WBC) Count 5.8 thou/uL (4.8-10.8)
[2019-01-20 16:53] LABS: ALT (SGPT) 43 U/L (8-55); AST (SGOT) 52 U/L (5-34); Albumin 3.7 g/dL (3.5-5.0); Alkaline Phosphatase 184 U/L (40-150); Anion Gap 17 mmol/L (10-20); BUN (Urea Nitrogen) 18 mg/dL (7.0-18.7); Bilirubin, Total 0.6 mg/dL (0.2-1.2); Calc. Creatinine Clearance 0 mL/min (70-130); Calcium 9.5 mg/dL (7.8-10.44); Carbon Dioxide 23 mmol/L (22-29); Chloride 101 mmol/L (98-107); Estimated GFR-MDRD Greater than 90; Globulin 3.7 g/dL (2.4-3.5); Glucose 163 mg/dL (70-105); Lipase Less than 4 U/L (8-78); Potassium 4.3 mmol/L (3.5-5.1); Protein, Total 7.4 g/dL (6.0-8.3); Sodium 137 mmol/L (136-145)
--- NOTE | 2019-01-20 17:30 | RAD ---
CHEST ONE VIEW ABDOMEN TWO VIEWS: FINDINGS/IMPRESSION: The heart size is enlarged. There are atherosclerotic changes in the right lung. Small pleural effusi ons may be present. No pneumothoraces are seen. There is a PICC catheter. No free air is seen. Multip le differential fluid levels are present. POS: [facility]
[2019-01-20] MEDS ORDERED: Morphine 4 MG/ML VIAL ONE ×2 (17:37→21:15)
[2019-01-20] MEDS ORDERED: Ondansetron PF 4 MG/2 ML Vial ONE ×2 (17:41→21:22)
--- NOTE | 2019-01-20 18:52 | CT ---
CT ABDOMEN AND PELVIS WITH IV CONTRAST: History: Abdominal pain, nausea, vomiting, dyspnea, chills. Patient had recent esophageal surgery for adenocar cinoma of the esophagus. FINDINGS: There are small bilateral pleural effusions with consolidation/atelectatic changes in the adjacent melchor ng mortensen. There are post op changes of esophageal surgery and a drainage tube in the right lower pos terior chest. No free air, free fluid, or lymphadenopathy is seen in the abdomen or pelvis. There are calcified granulomas in the spleen. There is a small fluid collection along the medial segment of th e left lobe of the liver adjacent to the falciform ligament measuring about 2.5 cm. No calcified gall stones are seen. Small bowel are not abnormally dilated. There is a jejunostomy tube. There is fluid in the colon and rectum. The patient is post hysterectomy. There are degenerative changes in the spin e. There is soft tissue air in the right lower lateral abdominal wall. IMPRESSION: Post op changes and pleural effusions and adjacent infiltrate/atelectatic changes as above. POS: [facility]
[2019-01-20 20:44] LABS: Bilirubin Negative (Negative); Blood, Urine Negative (Negative); Clarity Clear (Clear); Glucose, Urine (Dipstick) Normal (Negative); Leukocyte Negative Leu/uL (Negative); Nitrite Negative (Negative); Protein, Urine (Dipstick) Negative (Neg-Trace); Urobilinogen Normal mg/dL (Less than 2)
[2019-01-20] MEDS ORDERED: Ondansetron PF 4 MG/2 ML Vial IVP PRN ×2 (23:01→23:38)
[2019-01-20] MEDS ORDERED: Ondansetron ODT 4 MG TAB SL PRN (23:01)
[2019-01-20 23:27] VITALS: BMI 37.6
[2019-01-20] MEDS: Morphine 4 MG/ML VIAL SLOW IVP PRN (23:56)
[2019-01-20] MEDS: Sodium Chloride 0.9% 1,000 ML IV SCH (23:58)
[2019-01-21] MEDS: Morphine 4 MG/ML VIAL SLOW IVP PRN ×3 (03:48→12:21)
[2019-01-21] MEDS: Sodium Chloride 0.9% 1,000 ML IV SCH (08:15)
[2019-01-21] MEDS ORDERED: Sodium Chloride 0.9% 1,000 ML IV SCH (12:00)
--- NOTE | 2019-01-21 14:22 | CT ---
Exam: CT angiogram chest with 3-D rendering: HISTORY: Shortness of breath FINDINGS: Moderate left pleural effusion with extensive parenchymal changes in the left lower lobe evidence for atelectasis and/or pneumonia. Moderate somewhat loculated right pleural effusion changes with some pleural-based parenchymal changes evidence for chronic change or subsegmental atelectasis or pneumoni tis. Evidence for prior gastric pull up surgical procedure on the right side. No convincing CT evidence for acute pulmonary embolism. No evidence for aortic aneurysm or dissection. Extensive posto p changes in the upper abdomen. IMPRESSION: No convincing evidence for acute pulmonary embolism. Extensive other findings as above.
[2019-01-21 18:26] VITALS: BP 104/58; TEMP 98.4
--- NOTE | 2019-01-22 00:01 | HP ---
CHIEF COMPLAINT: Abdominal pain, nausea, vomiting, shortness of breath. HISTORY OF PRESENT ILLNESS: Ms. Chase is a 48-year-old female with past medical history of esophageal cancer diagnosed early this year. She had chemo, radiation as well as recently surgery as well in [place], has been having abdominal pain since that time, which is diffuse abdominal pain all over, has been having some nausea, vomiting, dyspnea, which got worse now, thus the patient came to the hospital. She was discharged to the hospital last week. So because of worsening nausea, vomiting, and abdominal pain as well as dyspnea, the patient called the EMS. EMS gave her Zofran on the way to the hospital. The patient gets feeding through G-tube, but still gets some clear liquids by mouth. In the ER, the patient was evaluated, found to have diffuse abdominal pain and was tachycardic as well. Initially, CT scan of the abdomen was normal, but they suspected PE, so she is being admitted to rule out pulmonary embolism. Currently, she has abdominal pain, still has some nausea. PAST MEDICAL HISTORY: 1. Esophageal adenocarcinoma status post chemo and radiation as well as esophagectomy. 2. Status post hysterectomy. CURRENT MEDICATIONS: The patient is on 1. Gabapentin 300 mg q.i.d. 2. Oxycodone 10 mg q.4 hours p.r.n. ALLERGIES: NKDA. FAMILY HISTORY: Nothing contributory. SOCIAL HISTORY: The patient lives with family. No history of smoking. No history of alcohol intake. REVIEW OF SYSTEMS: CARDIOVASCULAR: No chest pain. Has shortness of breath. RESPIRATORY: No fever or cough. GASTROINTESTINAL: Has abdominal pain, nausea, and vomiting. CENTRAL NERVOUS SYMPTOMS: No headache. No dizziness. PHYSICAL EXAMINATION: GENERAL: The patient is alert, awake, oriented x3. VITAL SIGNS: Temperature 98, pulse 99, respiratory rate 20, blood pressure 108/ 60. HEENT: Head is normocephalic, atraumatic. Pupils are equal and reactive. Nasopharynx is pale and dry. Hard and soft palate. No lesions. SKIN: Turgor decreased. NECK: Supple. No JVD. LUNGS: Bilateral air entry present. No rales, no rhonchi. HEART: S1 and S2, regular. ABDOMEN: Soft, diffusely tender. No guarding. No rigidity. Bowel sounds present. RECTAL: Deferred. CENTRAL NERVOUS SYSTEM: No focal deficit. LABORATORY DATA: CBC shows WBC 5.8, hemoglobin 13, hematocrit 38, platelets 371. Metabolic panel; sodium 137, potassium 4.3, chloride 101, CO2 23, blood urea nitrogen 18, creatinine 0.6, glucose 163. Lactic acid 1.2. Troponin less than 0.010. CT of the abdomen unremarkable, acute abdominal series unremarkable. EKG shows normal sinus rhythm, no acute ST-T changes seen. ASSESSMENT: 1. Shortness of breath, tachycardia, rule out pulmonary embolism. 2. Nausea, vomiting. 3. Abdominal pain. 4. Esophageal cancer status post chemo, radiation, and surgery. PLAN: 1. Vital signs q.4 hours. 2. Activity as tolerated. 3. Allergies, NKDA. 4. Hep-Lock. 5. CT angio chest in the morning. 6. Continue home medications. 7. Morphine p.r.n. Job ID: [id number] MTDD
--- NOTE | 2019-01-23 10:05 | DIS ---
DATE OF ADMISSION: 01/20/2019 DATE OF DISCHARGE: 01/21/2019 ADMITTING DIAGNOSES: 1. Abdominal pain with intractable nausea and vomiting. 2. Shortness of breath, tachycardia, rule out pulmonary embolism. 3. Esophageal cancer, status post chemo, radiation, and surgery. FINAL DIAGNOSES: 1. Shortness of breath, tachycardia, improved. No evidence of pulmonary embolism. 2. Nausea and vomiting with abdominal pain, improved. 3. Esophageal cancer. BRIEF SUMMARY OF HOSPITAL COURSE: Ms. Chase is a 48-year-old female, admitted because of nausea, vomiting, shortness of breath. The patient was tachycardic and has also abdominal pain. The patient underwent treatment for esophageal cancer in [place]. Because of worsening pain, nausea, vomiting, and shortness of breath, the patient came to the hospital. She was admitted to rule out pulmonary embolism in view of her tachycardia and shortness of breath and history of cancer. CT angio chest was done and did not show any evidence of pulmonary embolism. The patient's nausea and vomiting were controlled with medications and pain was also controlled with pain medication. The patient looks stable, so she is being discharged because she is supposed to have EGD done the next day at [place], so she is being discharged. At the time of discharge, she was stable. Her vital signs stable. Lungs clear. Heart sounds regular. Abdomen is soft and nontender. Bowel sounds present. DISCHARGE MEDICATIONS: 1. Oxycodone p.r.n. 2. MiraLAX 17 g daily. 3. Gabapentin daily. FOLLOWUP: The patient is going to be followed up in [place] with her cancer doctor. Job ID: [id number]
== END 2019-01-21 17:49 | disposition home or self-care (01) ==
LOC: ERS 15:41 → T4-A 20:41
PROVIDERS: ADMIT Internal Medicine; ATTEND Internal Medicine
DX: J90 Pleural effusion, not elsewhere classified (principal); J98.11 Atelectasis; R11.2 Nausea with vomiting, unspecified; R10.9 Unspecified abdominal pain; Z85.01 Personal history of malignant neoplasm of esophagus
CPT/HCPCS: 36415; 71275; 74022; 74177; 80053; 81003; 83605; 83690; 84484; 85025; 87040; 87086; 93005; 96361; 96374; 96375; 96376; G0378; J2270; J2405; Q9966

== ENCOUNTER 2019-03-13 15:48 | Emergency (ER) | payer OTHER ==
[2019-03-13] MEDS ORDERED: Morphine 4 MG/ML VIAL ONE (16:14)
[2019-03-13] MEDS ORDERED: Ondansetron PF 4 MG/2 ML Vial ONE (16:14)
[2019-03-13 16:26] LABS: #Eosinphils 0.1 thou/uL (0.0-0.7); #Lymphocytes 1.2 thou/uL (1.20-3.40); #Monocytes 0.4 thou/uL (0.11-0.59); #Neutrophils 3.5 thou/uL (1.40-6.50); %Basophils 0.3 % (0.0-1.0); %Eosinophils 2.2 % (0.0-10.0); %Lymphocytes 23.3 % (21.0-51.0); %Monocytes 8.1 % (0.0-10.0); %Neutrophils 66.1 % (42.0-75.0); Hemoglobin 13.3 g/dL (12.0-16.0); Mean Corpuscular HGB CONC 34.3 g/dL (32.0-36.0); Mean Corpuscular Hemoglobin 32.6 pg (27.0-31.0); Mean Corpuscular Volume 95.1 fL (78.0-98.0); Mean Platelet Volume 7.4 fL (7.4-10.4); Platelet Count 250 thou/uL (130-400); RBC Distribution Width 15.8 % (11.5-14.5); Red Blood Cell (RBC) Count 4.08 mill/uL (4.20-5.40); White Blood Cell (WBC) Count 5.2 thou/uL (4.8-10.8)
--- NOTE | 2019-03-13 16:41 | CT ---
EXAM: CT ABDOMEN AND PELVIS HISTORY: Abdominal pain and vomiting onset today. History of esophageal cancer. Esophageal reconstruc tion. Cough. COMPARISON: 01/20/2019, 11/04/2018 Procedure: Multiple contiguous axial images were obtained and a CT of the abdomen and pelvis with IV contrast. C oronal reformats were performed. FINDINGS: Upper GI: There is evidence of a gastric pull-through, incompletely evaluated. Lower Chest: Small bilateral pleural effusions. Consolidation in both lower lobes may represent atele ctasis or scar formation. Aspiration and/or pneumonia cannot be entirely excluded. Interval removal of a right-sided drainage catheter Vessels: Normal caliber aorta. Heart: Normal heart size. No significant pericardial effusion. Abdomen: Portal vein:Patent Gallbladder: No calcified gallstones. Normal caliber wall. Liver: Interval development of a well-circumscribed hypodense focus in the posterior hepatic dome melony suring 2.6 x 2.8 cm. Lesion is not appreciated on the study of October 2018 or January 2019 Pancreas: within normal limits. Spleen: within normal limits. Adrenals: within normal limits. Kidneys: Symmetric enhancement. No obstructive uropathy. Peritoneum: No ascites or free air, no fluid collection. Bowel: Limited evaluation due to the lack of oral contrast administration. No evidence of bowel obstr uction. Ileocecal junction is unremarkable. Normal caliber appendix. Scattered fecal material in a nondistended, nondilated colon. Sigmoid colon diverticulosis, without evidence of ascites. Mesentery and Retroperitoneum: No enlarged mesenteric or retroperitoneal lymph nodes. Abdominal Wall: within normal limits. Pelvis: Reproductive Organs: Surgically absent uterus Pelvis: No mass, lymphadenopathy, free air or free fluid. Bladder: within normal limits. Bones: within normal limits. IMPRESSION: 1. Interval development of a hypodense mass in the posterior hepatic dome. Differential consideration s include a interval metastatic lesion. Parenchymal abscess is a consideration given the findings on previous CT. Clinical correlation is essential. The lesion is not amenable to percutaneous biopsy due to its location 2. Findings with gastric pull-through. Previous noted right-sided pleural fluid has decreased in siz e. 3. Trace left-sided pleural effusion. Transcribed Date/Time: 03/13/2019 6:11 PM
--- NOTE | 2019-03-13 16:44 | CT ---
CTA CHEST WITH CONTRAST, AND 3-D VOLUME RENDERING CLINICAL INDICATION: Pain Comparison exam: 01/21/2019 FINDINGS: Pulmonary embolus:No significant filling defect is identified within the pulmonary arteries. Pulmonary parenchymal consolidation:Mild residual bilateral parenchymal consolidation, decreased from prior exam. Pleural effusion: Mild bilateral pleural fluid, which has decreased in volume. Redemonstration of postoperative findings of esophagectomy and gastric pull-through. There are scattered borderline size mediastinal lymph nodes. Pneumothorax: None Osseous structures: No acute process. IMPRESSION: No acute pulmonary embolus. Additional details are described above.
--- NOTE | 2019-03-13 16:48 | RAD ---
AP CHEST: 03/13/19 HISTORY: Cough and fever. Comparison made to chest film of 09/14/18. There is streaky infiltrate in the right lower lung concerning for inflammatory infiltrate. Left lung appears clear. The heart and mediastinum unremarkable. IMPRESSION: Evidence of right lower lung infiltrate. Upright PA and lateral views would be of benefit for better evaluation. POS: [facility]
[2019-03-13 16:51] LABS: ALT (SGPT) 26 U/L (8-55); AST (SGOT) 35 U/L (5-34); Albumin 4.4 g/dL (3.5-5.0); Alkaline Phosphatase 153 U/L (40-110); Anion Gap 16 mmol/L (10-20); BUN (Urea Nitrogen) 8 mg/dL (7.0-18.7); Bilirubin, Total 1.3 mg/dL (0.2-1.2); CK (CPK) 34 U/L (29-168); Calc. Creatinine Clearance 0 mL/min (70-130); Calcium 10.1 mg/dL (7.8-10.44); Carbon Dioxide 23 mmol/L (22-29); Chloride 103 mmol/L (98-107); Estimated GFR-MDRD 88; Globulin 4.2 g/dL (2.4-3.5); Glucose 137 mg/dL (70-105); Lipase Less than 4 U/L (8-78); Potassium 3.8 mmol/L (3.5-5.1); Protein, Total 8.6 g/dL (6.0-8.3); Sodium 138 mmol/L (136-145)
[2019-03-13 18:37] LABS: Bilirubin Negative (Negative); Blood, Urine Trace (Negative); Clarity Clear (Clear); Glucose, Urine (Dipstick) Normal (Negative); Leukocyte Negative Leu/uL (Negative); Nitrite Negative (Negative); Protein, Urine (Dipstick) 10 mg/dL (Neg-Trace); Squamous Epithelial 21-50 HPF (0-3); Urobilinogen Normal mg/dL (Less than 2)
[2019-03-13 18:42] LABS: Bacteria/HPF 2+ HPF (None Seen)
[2019-03-13 18:43] LABS: RBC/HPF 0-3 HPF (0-3)
== END 2019-03-13 18:40 | disposition home or self-care (01) ==
LOC: ERS 15:48
DX: R10.9 Unspecified abdominal pain (principal)
CPT/HCPCS: 71045; 71275; 74177; 80053; 81003; 81015; 82550; 83605; 83690; 83880; 84484; 85025; 87040; 87804; 93005; 96361; 96374; 96375; J2270; J2405

== ENCOUNTER 2019-03-27 08:57 | Outpatient (CLI) | payer OTHER ==
[2019-03-27] MEDS ORDERED: ISOVUE-370 76%-LOCM 1 ML ONE (09:47)
--- NOTE | 2019-03-27 12:04 | CT ---
CT Abdomen W WO Con History: Esophageal cancer. Liver lesions. Comparison: CT abdomen and pelvis March 13, 2019 Multiple prior examinations dating back to 2012. Findings: Prior gastric pull-through procedure. Small effusions. No significant pericardial fluid. No significant pericardial fluid. Focal fatty infiltration hepatic segment IVY near the falciform lig ament. The hepatic segment VII round mass has no significant internal enhancement with delayed a somewhat pe ripheral capsular bulge. Overall this mass is unchanged in the 2318 exam this lesion was not present on the 01/20/2019 postoperative exam. No hydronephrosis. No new adenopathy. No dilated loops of large or small bowel. No hydronephrosis. Impression: No significant internal enhancement of the hepatic segment VII mass which may reflect a s ubcapsular collection of seroma/phlegmonous material and less likely a metastatic deposit given initially appeared after surgery and there are no other abnormal hepatic masses nor adenopathy. Relat cherie given the relative absence of peripheral hyperenhancement to reflect inflammation, PET/CT may be beneficial..
== END 2019-03-27 08:58 | disposition home or self-care (01) ==
LOC: BICCT 08:57
PROVIDERS: ATTEND Internal Medicine Hematology & Oncology
DX: C15.5 Malignant neoplasm of lower third of esophagus (principal); R93.7 Abnormal findings on diagnostic imaging of other parts of musculoskeletal system
CPT/HCPCS: 74170; Q9966

== ENCOUNTER 2019-04-05 09:03 | Outpatient (CLI) | payer OTHER ==
--- NOTE | 2019-04-05 14:08 | PET ---
PET CT SKULL TO MID THIGH: COMPARISON: CT, 03/27/2019. HISTORY: Esophageal malignancy. TECHNIQUE: A PET/CT was performed from the skull to the mid thigh after administration of 10.7 millicuries of F- 18 FDG. Evaluation was performed on a CSR workstation. FINDINGS: NECK: Nonspecific mild hypermetabolic activity involving left level II lymph node, which measures ulises roximately 9 mm in diameter. CHEST: No areas of hypermetabolic activity. ABDOMEN/PELVIS: There is hypermetabolic activity regarding the hypodense lesion of the medial aspect of the right hepatic lobe, with maximum SUV 5.4. Hypermetabolic activity is predominantly circumferentially located about the periphery of the known hypodense lesion. SKELETON: No areas of hypermetabolic activity. CT images used for attenuation correction show postsurgical change of the mediastinum with evidence o f gastric pull-through status post esophagectomy. There is bilateral pleural-based density and scattered bilateral pulmonary parenchymal opacities, most confluent at the left lower lobe, medially. . IMPRESSION: 1. Peripherally oriented hypermetabolic activity about the patient's known hepatic lesion involving medial aspect of right hepatic lobe. Necrotic malignancy is the diagnosis of exclusion in light of patient's history. 2. 9 mm hypermetabolic left level II lymph node. Transcribed Date/Time: 04/05/2019 2:14 PM
== END 2019-04-05 09:04 | disposition home or self-care (01) ==
LOC: PET 09:03
PROVIDERS: ATTEND Internal Medicine Hematology & Oncology
DX: C15.9 Malignant neoplasm of esophagus, unspecified (principal); K76.89 Other specified diseases of liver
CPT/HCPCS: 78815; A9552

== ENCOUNTER 2019-04-10 11:23 | Day surgery (SDC) | payer OTHER ==
[2019-04-10 12:37] LABS: INR-International Normal Ratio 1.1; PTT 28.6 SEC (22.9-36.1); Prothrombin Time 13.7 SEC (12.0-14.7)
[2019-04-10 15:16] VITALS: BMI 33.9
--- NOTE | 2019-04-10 16:05 | CT ---
CT GUIDED LIVER BIOPSY: CLINICAL HISTORY: Esophageal cancer, liver lesion. PROCEDURE: Informed consent was obtained and the patient was escorted to the procedural suite, placed in supine position. The patient's skin was prepped and draped in a standard sterile fashion and topical anesthesia with buffered 1% lidocaine was performed. After a small skin incision was made, a 20-gauge needle was advanced to the leading edge of the lesion of the medial aspect of the superior right hepatic lobe. After adequate placement was confirmed with CT fluoroscopic imaging, 3 subsequent core specimens were obtained via percutaneous biopsy. These were confirmed with CT fluoroscopic imaging and the specimens were submitted to the pathologist for adequacy. Specimens were deemed adequate for interpretation. Therefore, all devices were then removed from the patient. No unexpected procedural complications were present. The patient was monitored in radiology holding i n stable condition prior to discharge with family member. IMPRESSION: Technically successful percutaneous hepatic biopsy. Pathology results are pending.
== END 2019-04-10 16:05 | disposition home or self-care (01) ==
LOC: CT 11:23
PROVIDERS: ATTEND Internal Medicine Hematology & Oncology
PROC: 0FB03ZX Excision of Liver, Percutaneous Approach, Diagnostic (ICD-10-PCS; principal; 2019-04-10)
DX: C22.7 Other specified carcinomas of liver (principal); K21.9 Gastro-esophageal reflux disease without esophagitis; Z79.899 Other long term (current) drug therapy; Z85.01 Personal history of malignant neoplasm of esophagus
CPT/HCPCS: 36415; 47000; 77012; 85610; 85730; 88307; 88313; 88333; 88342

== ENCOUNTER 2019-05-07 20:13 | Emergency (ER) | payer OTHER ==
[2019-05-07 21:19] LABS: #Monocytes 0.3 thou/uL (0.11-0.59); #Neutrophils 2.8 thou/uL (1.40-6.50); %Basophils 0.2 % (0.0-1.0); %Eosinophils 0.7 % (0.0-10.0); %Lymphocytes 24.4 % (21.0-51.0); %Monocytes 7.5 % (0.0-10.0); %Neutrophils 67.2 % (42.0-75.0); Hemoglobin 11.4 g/dL (12.0-16.0); Mean Corpuscular HGB CONC 34.7 g/dL (32.0-36.0); Mean Corpuscular Hemoglobin 33.4 pg (27.0-31.0); Mean Platelet Volume 6.8 fL (7.4-10.4); Platelet Count 251 thou/uL (130-400); RBC Distribution Width 13.5 % (11.5-14.5); Red Blood Cell (RBC) Count 3.41 mill/uL (4.20-5.40); White Blood Cell (WBC) Count 4.2 thou/uL (4.8-10.8)
[2019-05-07] MEDS ORDERED: Ondansetron PF 4 MG/2 ML Vial ONE (21:34)
[2019-05-07] MEDS ORDERED: Morphine 4 MG/ML VIAL ONE ×2 (21:34→22:46)
[2019-05-07 21:42] LABS: ALT (SGPT) 17 U/L (8-55); AST (SGOT) 32 U/L (5-34); Albumin 3.9 g/dL (3.5-5.0); Alkaline Phosphatase 142 U/L (40-110); Anion Gap 11 mmol/L (10-20); BUN (Urea Nitrogen) 10 mg/dL (7.0-18.7); Bilirubin, Total 0.9 mg/dL (0.2-1.2); Calc. Creatinine Clearance 0 mL/min (70-130); Calcium 9.4 mg/dL (7.8-10.44); Carbon Dioxide 25 mmol/L (22-29); Chloride 104 mmol/L (98-107); Estimated GFR-MDRD 88; Globulin 3.8 g/dL (2.4-3.5); Glucose 122 mg/dL (70-105); Lipase Less than 4 U/L (8-78); Potassium 3.4 mmol/L (3.5-5.1); Protein, Total 7.7 g/dL (6.0-8.3); Sodium 137 mmol/L (136-145)
--- NOTE | 2019-05-07 22:16 | CT ---
CT ABDOMEN AND PELVIS WITH IV CONTRAST: 05/07/19 INDICATIONS: Abdominal pain. Comparison made to recent CT abdomen and pelvis 03/27/19 and 03/13/19. Comparison made to PET CT of . Prior exams have revealed a low density mass in the posterior dome of the liver. FINDINGS: Images through the lung bases show mild posterior left lung base atelectasis or streaky infiltrate. The low density mass in the posterior aspect of the dome of the liver has increased in size. It now m easures 5.2 cm in the axial plane whereas it previously measured 2.8 cm. Recent PET scan had shown hy permetabolic activity suggesting a neoplastic process. Spleen and pancreas unremarkable. Postoperative changes in the epigastric region. A gastric pull thr ough type procedure is again noted. Kidneys unremarkable. Small bowel loops normal caliber. Colon unremarkable. No free fluid or mass lesion seen. IMPRESSION: Enlargement of the liver mass in the posterior dome of the liver which has been previously described and evaluated. No acute intraabdominal process or significant interval change otherwise noted. POS: OFF
[2019-05-07 22:51] LABS: Bilirubin Negative (Negative); Blood, Urine Negative (Negative); Clarity Clear (Clear); Glucose, Urine (Dipstick) Normal (Negative); Leukocyte Negative Leu/uL (Negative); Nitrite Negative (Negative); Protein, Urine (Dipstick) 10 mg/dL (Neg-Trace); Urobilinogen 3 mg/dL (Less than 2)
== END 2019-05-07 23:19 | disposition home or self-care (01) ==
LOC: ERS 20:13
DX: R10.9 Unspecified abdominal pain (principal); Z79.899 Other long term (current) drug therapy
CPT/HCPCS: 74177; 80053; 81003; 83690; 85025; 96361; 96374; 96375; 96376; J2270; J2405

== ENCOUNTER 2019-05-20 15:55 | Inpatient (IN) | payer OTHER ==
[2019-05-20] MEDS ORDERED: Ondansetron PF 4 MG/2 ML Vial ONE ×2 (16:55→20:19)
[2019-05-20] MEDS ORDERED: Fentanyl 100 MCG/2 ML VIAL ONE ×2 (16:55→18:39)
[2019-05-20 17:09] LABS: #Lymphocytes 0.4 thou/uL (1.20-3.40); #Neutrophils 2.9 thou/uL (1.40-6.50); %Basophils 0.7 % (0.0-1.0); %Eosinophils 0.3 % (0.0-10.0); %Lymphocytes 11.1 % (21.0-51.0); %Monocytes 0.5 % (0.0-10.0); %Neutrophils 87.4 % (42.0-75.0); Hemoglobin 10.6 g/dL (12.0-16.0); Mean Corpuscular HGB CONC 34.2 g/dL (32.0-36.0); Mean Corpuscular Hemoglobin 34.4 pg (27.0-31.0); Mean Platelet Volume 7.4 fL (7.4-10.4); Platelet Count 151 thou/uL (130-400); RBC Distribution Width 14.2 % (11.5-14.5); Red Blood Cell (RBC) Count 3.07 mill/uL (4.20-5.40); White Blood Cell (WBC) Count 3.3 thou/uL (4.8-10.8)
[2019-05-20 17:40] LABS: ALT (SGPT) 16 U/L (8-55); AST (SGOT) 33 U/L (5-34); Albumin 3.4 g/dL (3.5-5.0); Alkaline Phosphatase 127 U/L (40-110); Anion Gap 10 mmol/L (10-20); BUN (Urea Nitrogen) 9 mg/dL (7.0-18.7); Bilirubin, Total 0.8 mg/dL (0.2-1.2); Calc. Creatinine Clearance 0 mL/min (70-130); Calcium 7.8 mg/dL (7.8-10.44); Carbon Dioxide 23 mmol/L (22-29); Chloride 107 mmol/L (98-107); Estimated GFR-MDRD Greater than 90; Globulin 3.1 g/dL (2.4-3.5); Glucose 183 mg/dL (70-105); Lipase Less than 4 U/L (8-78); Potassium 4.1 mmol/L (3.5-5.1); Protein, Total 6.5 g/dL (6.0-8.3); Sodium 136 mmol/L (136-145)
[2019-05-20] MEDS ORDERED: Acetaminophen 500 MG TAB ONE (20:19)
[2019-05-20 20:33] LABS: Bilirubin Negative (Negative); Blood, Urine Negative (Negative); Clarity Clear (Clear); Glucose, Urine (Dipstick) Normal (Negative); Leukocyte Negative Leu/uL (Negative); Nitrite Negative (Negative); Protein, Urine (Dipstick) Negative (Neg-Trace); Urobilinogen Normal mg/dL (Less than 2)
[2019-05-20] MEDS ORDERED: Acetaminophen 325 MG TAB PO PRN (22:18)
[2019-05-20] MEDS ORDERED: Ondansetron PF 4 MG/2 ML Vial IVP PRN (22:18)
[2019-05-20] MEDS ORDERED: Ondansetron ODT 4 MG TAB SL PRN (22:18)
[2019-05-20] MEDS ORDERED: HYDROcodone/Acetaminophen 5/325 mg Tablet PO PRN ×2 (22:18)
[2019-05-20] MEDS ORDERED: Morphine 2 MG/ML SYRINGE SLOW IVP PRN (22:19)
[2019-05-20] MEDS: Sodium Chloride 0.9% 1,000 ML IV SCH (23:13)
[2019-05-20] MEDS: Morphine 4 MG/ML VIAL SLOW IVP PRN (23:14)
[2019-05-20 23:43] VITALS: BMI 32.1
[2019-05-21] MEDS: Sodium Chloride 0.9% 1,000 ML IV SCH ×2 (05:43→19:55)
[2019-05-21] MEDS: Morphine 4 MG/ML VIAL SLOW IVP PRN (05:47)
[2019-05-21] MEDS ORDERED: Sodium Chloride 0.9% 1,000 ML IV SCH (10:30)
[2019-05-21] MEDS ORDERED: Ondansetron PF 4 MG/2 ML Vial IVP PRN (10:31)
[2019-05-21] MEDS: HYDROcodone/Acetaminophen 10/325 mg Tablet PO PRN ×2 (11:26→18:07)
[2019-05-21] MEDS ORDERED: Ondansetron HCl/PF 8 MG in Sodium Chloride 0.9% 50 ML IVPB SCH (14:00)
[2019-05-21] MEDS: Gabapentin 300 MG CAP PO SCH ×2 (15:07→21:50)
[2019-05-21] MEDS ORDERED: Promethazine HCl 25 MG/ML VIAL SLOW IVP PRN (18:36)
--- NOTE | 2019-05-21 23:23 | HP ---
CHIEF COMPLAINT: Nausea, vomiting, diarrhea. HISTORY OF PRESENT ILLNESS: Ms. Chase is a 49-year-old female with past medical history of cervical cancer, on chemo, came because of nausea, vomiting, and diarrhea, which is intractable. Patient unable to tolerate anything, has vomited several times at home and also has loose watery stools several times as well with some abdominal cramping. The patient states she started chemotherapy 2 weeks ago, just finished 2 days ago. The patient also complains of headache, but no chest pain or shortness of breath. The patient decided to come to the hospital because of not able to tolerate an oral intake. In the ER, the patient was evaluated and found to have severe intractable nausea, vomiting, diarrhea, and slightly hypotensive as well. She was started on IV fluids, after the bolus given a dose of Zofran and given morphine also for pain, admitted for further evaluation and management. PAST MEDICAL HISTORY: Esophageal adenocarcinoma, on chemotherapy. PAST SURGICAL HISTORY: Status post hysterectomy. CURRENT MEDICATIONS: The patient is on Protonix 20 mg daily, [place] 10/325 q.i.d. p.r.n., gabapentin 600 t.i.d., Zofran p.r.n. ALLERGIES: NKDA. FAMILY HISTORY: Nothing contributory. SOCIAL HISTORY: The patient lives with family. No history of smoking. No history of alcohol intake. REVIEW OF SYSTEMS: CARDIOVASCULAR: No chest pain or shortness of breath. RESPIRATORY: No fever or cough. GASTROINTESTINAL: No abdominal pain, nausea, vomiting, diarrhea. CENTRAL NERVOUS SYSTEM: Has headache. No dizziness. PHYSICAL EXAMINATION: GENERAL: The patient is alert, awake, and oriented x3. VITAL SIGNS: Temperature 98, pulse 70, respirations 20, blood pressure 160/70. HEENT: Head is normocephalic, atraumatic. Pupils are equal and reactive. Nasopharynx is pale and dry. NECK: Supple. No JVD. LUNGS: Bilateral air entry. No rales, no rhonchi. HEART: S1 and S2, regular. ABDOMEN: Soft, tender diffusely. No guarding. No rigidity. Bowel sounds present. RECTAL: Deferred. CENTRAL NERVOUS SYSTEM: No focal deficit. LABORATORY DATA: CBC: WBC 3.3, hemoglobin 10, hematocrit 30, platelets 151. Metabolic panel; sodium 136, potassium 4, creatinine 0.6, glucose 183. Urinalysis negative. ASSESSMENT: 1. Intractable nausea, vomiting. 2. Severe diarrhea. 3. Esophageal adenocarcinoma, metastatic, on chemo. PLAN: 1. Vital signs q.4 hours. 2. Activity as tolerated. 3. Allergies, NKDA. 4. Hep-Lock IV fluids, normal saline at 70 mL/h. 5. Diet, full liquids. 6. Continue home medications. 7. Stool studies. Job ID: [id number] MTDD
[2019-05-22] MEDS: HYDROcodone/Acetaminophen 10/325 mg Tablet PO PRN ×2 (00:49→16:02)
[2019-05-22] MEDS: Sodium Chloride 0.9% 1,000 ML IV SCH ×3 (00:53→14:57)
[2019-05-22] MEDS ORDERED: Morphine 2 MG/ML SYRINGE SLOW IVP PRN ×2 (05:01→17:11)
[2019-05-22] MEDS ORDERED: Morphine 4 MG/ML VIAL SLOW IVP PRN ×2 (05:01→05:02)
[2019-05-22 06:54] LABS: Anion Gap 10 mmol/L (10-20); BUN (Urea Nitrogen) 6 mg/dL (7.0-18.7); Calc. Creatinine Clearance 171 mL/min (70-130); Calcium 8.3 mg/dL (7.8-10.44); Carbon Dioxide 25 mmol/L (22-29); Chloride 107 mmol/L (98-107); Estimated GFR-MDRD Greater than 90; Glucose 85 mg/dL (70-105); Potassium 3.5 mmol/L (3.5-5.1); Sodium 138 mmol/L (136-145)
[2019-05-22 07:07] LABS: Band 9 % (5-11); Hemoglobin 9.9 g/dL (12.0-16.0); Lymphocytes 11 % (21-51); MDiff Complete? YES; Mean Corpuscular HGB CONC 34.5 g/dL (32.0-36.0); Mean Corpuscular Hemoglobin 34.5 pg (27.0-31.0); Mean Platelet Volume 7.5 fL (7.4-10.4); Monocytes 2 % (0-10); Neutrophil 78 % (42-75); Platelet Count 106 thou/uL (130-400); Platelet Morphology Comment Appears Decreased; RBC Distribution Width 14.2 % (11.5-14.5); Red Blood Cell (RBC) Count 2.86 mill/uL (4.20-5.40); White Blood Cell (WBC) Count 8.8 thou/uL (4.8-10.8)
[2019-05-22] MEDS: Gabapentin 300 MG CAP PO SCH ×3 (09:13→20:06)
[2019-05-22] MEDS ORDERED: Sodium Chloride 0.9% 500 ML IVPB SCH (13:30)
[2019-05-22] MEDS ORDERED: Sodium Chloride 0.9% 500 ML IV SCH (22:30)
[2019-05-22] MEDS: Ketorolac Tromethamine 30 MG/ML VIAL IVP PRN (22:39)
[2019-05-23] MEDS: Sodium Chloride 0.9% 1,000 ML IV SCH ×2 (01:48→19:30)
[2019-05-23] MEDS: Ketorolac Tromethamine 30 MG/ML VIAL IVP PRN ×2 (05:17→17:20)
[2019-05-23 06:32] LABS: Hemoglobin 9.7 g/dL (12.0-16.0); Mean Corpuscular HGB CONC 33.5 g/dL (32.0-36.0); Mean Corpuscular Hemoglobin 33.2 pg (27.0-31.0); Mean Corpuscular Volume 98.8 fL (78.0-98.0); Mean Platelet Volume 7.7 fL (7.4-10.4); Platelet Count 88 thou/uL (130-400); RBC Distribution Width 13.9 % (11.5-14.5); Red Blood Cell (RBC) Count 2.92 mill/uL (4.20-5.40); White Blood Cell (WBC) Count 9.1 thou/uL (4.8-10.8)
[2019-05-23 06:50] LABS: Band 8 % (5-11); Eosinophils 1 % (0-10); Hypochromia SLIGHT = 6-15 cells (100X) (0-5/hpf); Lymphocytes 3 % (21-51); MDiff Complete? YES; Monocytes 8 % (0-10); Neutrophil 80 % (42-75); Platelet Morphology Comment Appears Decreased
[2019-05-23 06:51] LABS: ALT (SGPT) 11 U/L (8-55); AST (SGOT) 23 U/L (5-34); Albumin 2.9 g/dL (3.5-5.0); Alkaline Phosphatase 127 U/L (40-110); Anion Gap 10 mmol/L (10-20); BUN (Urea Nitrogen) 6 mg/dL (7.0-18.7); Bilirubin, Total 0.5 mg/dL (0.2-1.2); Calc. Creatinine Clearance 183 mL/min (70-130); Carbon Dioxide 22 mmol/L (22-29); Chloride 110 mmol/L (98-107); Estimated GFR-MDRD Greater than 90; Globulin 2.5 g/dL (2.4-3.5); Glucose 86 mg/dL (70-105); Potassium 3.5 mmol/L (3.5-5.1); Protein, Total 5.4 g/dL (6.0-8.3); Sodium 138 mmol/L (136-145)
[2019-05-23] MEDS: Gabapentin 300 MG CAP PO SCH ×3 (08:41→20:37)
[2019-05-23] MEDS: HYDROcodone/Acetaminophen 10/325 mg Tablet PO PRN ×2 (08:44→18:43)
--- NOTE | 2019-05-23 08:47 | PDOC.MOPN ---
Interval History: Pt feeling better. Still has LUQ pain, mostly worse after eating. Morphine hasn' t been working but Toradol worked this morning. Denies N/V/D. - Vital Signs Vital Signs: Vital Signs (12 hours) Temp Pulse Resp BP BP Pulse Ox 05/23/19 04:59 97.9 F 74 16 107/70 94 L 05/23/19 00:00 98.4 F 73 16 100/70 95 05/22/19 22:48 105/70 05/22/19 21:38 95/63 05/22/19 21:00 98.3 F 76 18 92 L Weight Admit Weight 198 lb 14.4 oz Weight 198 lb 14.4 oz - Physical Exam General: Alert, Oriented x3, Cooperative HEENT: EOMI Lungs: Normal air movement Cardiovascular: Regular rate Abdomen: Other (LUQ tenderness) Neurological: Cranial nerves 3-12 NL - Labs Result Diagrams: 05/23/19 06:21 05/23/19 06:21 Lab results: Laboratory Results - last 24 hr 05/23/19 06:21: WBC 9.1, RBC 2.92 L, Hgb 9.7 L, Hct 28.9 L, MCV 98.8 H, MCH 33.2 H, MCHC 33.5, RDW 13.9, Plt Count 88 L, MPV 7.7, Neutrophils % (Manual) 80 H, Band Neuts % (Manual) 8, Lymphocytes % (Manual) 3 L, Monocytes % (Manual) 8, Eosinophils % (Manual) 1, Hypochromia SLIGHT = 6-15 cells, Plt Morphology Comment Appears Decreased L 05/23/19 06:21: Sodium 138, Potassium 3.5, Chloride 110 H, Carbon Dioxide 22, Anion Gap 10, BUN 6 L, Creatinine 0.54 L, Estimated GFR (MDRD) Greater than 90 , Glucose 86, Calcium 8.0, Total Bilirubin 0.5, AST 23, ALT 11, Alkaline Phosphatase 127 H, Serum Total Protein 5.4 L, Albumin 2.9 L, Globulin 2.5, Albumin/Globulin Ratio 1.2 A/P - Problem (1) Abdominal pain Current Visit: No Code(s): R10.9 - UNSPECIFIED ABDOMINAL PAIN Status: Acute (2) Malignant neoplasm of esophagus Current Visit: No Status: Acute - Plan Plan: Cont pain medication: need to change to oral regimen for discharge - first day her pain has improved now with toradol, likely plan discharge for tomorrow
--- NOTE | 2019-05-23 09:14 | CON ---
DATE OF CONSULTATION: 05/21/2019 REASON FOR CONSULTATION: Esophageal adenocarcinoma. HISTORY OF PRESENT ILLNESS: Ms. Chase is a pleasant 49 year old female with metastatic esophageal adenocarcinoma to the liver. She is undergoing treatment with chemotherapy consisting of 5-FU and oxaliplatin. She received cycle 2 on May 16. Over the weekend, she began to have some nausea and yesterday had diarrhea. She came to our clinic yesterday where she received Neulasta and 1 L of fluid for dehydration. She then presented to the emergency room yesterday evening for continued nausea. The patient was also having some left upper quadrant abdominal pain, which has been present since her surgery. This is neuropathic pain that hurts with palpation. She takes gabapentin for this pain. She was admitted and started on IV fluids. She remains on a clear liquid diet. She denies any chest pain. No further nausea. She has had no diarrhea today. She does have shortness of breath with exertion. PAST MEDICAL HISTORY: 1. Metastatic esophageal adenocarcinoma with liver mets. 2. Anxiety. 3. GERD. PAST SURGICAL HISTORY: 1. Hysterectomy. 2. Upper GI endoscopy. ALLERGIES: NO KNOWN DRUG ALLERGIES. HOME MEDICATIONS: 1. Gabapentin. 2. Lorazepam. 3. Monon. 4. Zofran. 5. Phenergan. FAMILY HISTORY: Father had kidney cancer. SOCIAL HISTORY: . Lives with her spouse. No alcohol, tobacco, or illicit drug use. REVIEW OF SYSTEMS: A 10-point review of systems is negative except for noted in HPI. PHYSICAL EXAMINATION: VITAL SIGNS: Temperature 98.2, pulse is 70, respiratory rate 18, blood pressure is 113/79. She is 100% on room air. GENERAL: Well-developed, well-nourished female, in no acute distress. HEENT: Normocephalic and atraumatic. Pupils are equal and reactive to light. NECK: Supple. CARDIOVASCULAR: Regular rate and rhythm. LUNGS: Clear. ABDOMEN: Soft and nontender. She has neuropathic pain in her left upper quadrant. EXTREMITIES: No clubbing or cyanosis. SKIN: No rash. HEMATOLOGIC: No petechiae or purpura. NEUROLOGIC: Nonfocal. PERTINENT LABORATORY DATA AND X-RAYS: Current WBCs are 3.3, hemoglobin 10.6, hematocrit 30.9, platelet count is a 151,000, 87% neutrophils, 11% lymphocytes. Sodium is 136, potassium 4.1, chloride 107, CO2 is 23, BUN is 9, creatinine 0.68 , calcium 7.8, bilirubin 0.8, AST is 33, ALT is 16, alkaline phosphatase is 127. Serum total protein is 6.5, albumin 3.4, globulin 3.1. Urine was negative. ASSESSMENT: 1. Esophageal cancer, on chemotherapy. 2. Nausea and diarrhea. DISCUSSION: The patient's symptoms have improved since admission. She states she feels 100% better. She remains on a clear liquid diet, which should be advanced prior to discharge. She does state that her has had a stomach bug over the weekend and she feels that this is the same. She is not neutropenic and has had no fevers. We would continue to support her with IV fluids and antiemetics and discharged to home in the next 24 hours. Thank you for the consult. Job ID: [id number] ERVIN
[2019-05-23] MEDS ORDERED: Morphine 2 MG/ML SYRINGE SLOW IVP SCH (21:00)
[2019-05-24] MEDS: HYDROcodone/Acetaminophen 10/325 mg Tablet PO PRN ×2 (00:39→10:51)
[2019-05-24] MEDS: Gabapentin 300 MG CAP PO SCH (08:41)
[2019-05-24 12:13] VITALS: BP 123/89; TEMP 97.9
--- NOTE | 2019-05-27 08:37 | PQF ---
DEISY KO VENKAT R MD [id number] CLINICAL DOCUMENTATION CLARIFICATION FORM: POST DISCHARGE Addendum to original discharge summary date: ____ Late entry note date: __ DATE: 05/27/2019 ATTN: TRACEY GUTIERRES MD Please exercise your independent, professional judgment in responding to the clarification form. Clinical indicators are provided on the bottom of this form for your review Please clarify following symptoms etiology: [ y] Nausea/vomiting due chemotherapy [ ] Nausea/vomiting not due chemotherapy [ ] Hypotension due to Chemotherapy [ y] Hypotension unspecified [ ] Other diagnosis [ ] Unable to determine For continuity of documentation, please document condition throughout progress notes and discharge summary. Thank You. CLINICAL INDICATORS - SIGNS / SYMPTOMS / LABS - Intractable vomiting, diarrhea-ED record, 05/20, Antonia Mcdonald MD - Severe intractable nausea, vomiting, diarrhea and slightly hypotensive as well - H&P, Jane good MD - she started chemotherapy 2 week ago, just finished 2 days ago-H&P, Jane good MD - Abdomen pain- Medical oncology PN, 05/23, Benoit knight MD RISK FACTORS - Esophageal adenocarcinoma, metastatic on chemo- H&PJane MD TREATMENTS: - Ondansetron.IV- JUL,05/20 - Sodium chloride.IV JUL, 05/20 (This form is maintained as a part of the permanent medical record) 2014 [employer]. All Rights Reserved Mallika Chow [not provided] [not provided] MTDD
--- NOTE | 2019-05-27 09:59 | DIS ---
DATE OF ADMISSION: 05/20/2019 DATE OF DISCHARGE: 05/24/2019 ADMITTING DIAGNOSES: 1. Intractable nausea and vomiting. 2. Severe diarrhea. 3. Esophageal adenocarcinoma, metastatic, on chemo. FINAL DIAGNOSES: 1. Intractable nausea and vomiting, improved. 2. Severe diarrhea, improved. 3. Abdominal pain, chronic. 4. Esophageal adenocarcinoma, metastatic, on chemo. 5. Weakness, improved. BRIEF SUMMARY OF HOSPITAL COURSE: Ms. Chase is a 49-year-old female, admitted because of intractable diarrhea, vomiting, nausea, unable to tolerate any oral intake. She was started on IV fluids, kept n.p.o. for a day. The following day, she was started on clear liquids and then advanced to full liquids and she tolerated diet very well. She continues to have abdominal pain. She also had episodes of hypotension, which responded to IV fluid bolus, so the patient given IV fluids for 2 days after they were discontinued. The patient was then advanced for a regular diet and she is tolerating diet very well, though she still has abdominal pain, but no nausea or vomiting. No diarrhea since admission to the hospital, so no stool studies were done. In view of improvement, the patient was discharged. At the time of discharge, she was stable, her vital signs stable, lungs clear, heart sounds regular. Abdomen is soft, diffusely tender. No guarding. No rigidity. Bowel sounds present. DISCHARGE MEDICATIONS: 1. Zofran p.r.n. 2. Gabapentin 600 t.i.d. 3. [place] 10/325 one tablet q.i.d. p.r.n. 4. Protonix 20 mg daily. FOLLOWUP: The patient will follow with oncologist. Job ID: [id number] MTDD
== END 2019-05-24 12:10 | disposition home or self-care (01) | DRG 392 ==
LOC: ERS 15:55 → OBSVTOIN 22:22 → T4-B 22:22
PROVIDERS: ADMIT Internal Medicine; ATTEND Internal Medicine
DX: R11.2 Nausea with vomiting, unspecified (principal); C15.9 Malignant neoplasm of esophagus, unspecified; C78.7 Secondary malignant neoplasm of liver and intrahepatic bile duct; I95.9 Hypotension, unspecified; F41.9 Anxiety disorder, unspecified; K21.9 Gastro-esophageal reflux disease without esophagitis; T45.1X5A Adverse effect of antineoplastic and immunosuppressive drugs, initial encounter; E86.0 Dehydration; Z90.710 Acquired absence of both cervix and uterus
CPT/HCPCS: 36415; 80048; 80053; 81003; 83690; 85025; 96361; 96374; 96375; 96376; J1885; J2270; J2405; J2550; J3010; J7050

== ENCOUNTER 2019-05-30 11:40 | Observation (INO) | payer OTHER ==
--- NOTE | 2019-05-30 12:14 | RAD ---
Chest AP view INDICATION: Cough COMPARISON: March 13, 2019 FINDINGS: Lungs:The lungs are clear Cardiac silhouette:Stable mild cardiomegaly. New right chest wall port. Tip of the catheter projects in the region of the distal SVC. Pulmonary vasculature:Normal Pleural spaces:No pleural effusion or pneumothorax is demonstrated. Upper abdomen:No abnormality seen. Osseous structures: No acute osseous abnormality. Small sclerotic lesion of the left humerus is stabl e. Additional findings:None. IMPRESSION: No acute cardiopulmonary abnormality.
[2019-05-30 12:23] LABS: Hemoglobin 11.3 g/dL (12.0-16.0); Mean Corpuscular HGB CONC 33.7 g/dL (32.0-36.0); Mean Corpuscular Hemoglobin 33.4 pg (27.0-31.0); Mean Corpuscular Volume 99.2 fL (78.0-98.0); Mean Platelet Volume 7.5 fL (7.4-10.4); Platelet Count 129 thou/uL (130-400); RBC Distribution Width 15.1 % (11.5-14.5); Red Blood Cell (RBC) Count 3.39 mill/uL (4.20-5.40); White Blood Cell (WBC) Count 10.8 thou/uL (4.8-10.8)
[2019-05-30] MEDS ORDERED: cefTRIAXone\\ROCEPHIN 2 GM VIAL ONE (12:26)
[2019-05-30 12:43] LABS: ALT (SGPT) 11 U/L (8-55); AST (SGOT) 22 U/L (5-34); Albumin 3.7 g/dL (3.5-5.0); Alkaline Phosphatase 175 U/L (40-110); Anion Gap 13 mmol/L (10-20); BUN (Urea Nitrogen) 10 mg/dL (7.0-18.7); Bilirubin, Total 0.8 mg/dL (0.2-1.2); Calc. Creatinine Clearance 0 mL/min (70-130); Carbon Dioxide 28 mmol/L (22-29); Chloride 104 mmol/L (98-107); Estimated GFR-MDRD Greater than 90; Globulin 3.3 g/dL (2.4-3.5); Glucose 116 mg/dL (70-105); Potassium 3.5 mmol/L (3.5-5.1); Sodium 141 mmol/L (136-145)
[2019-05-30 12:49] LABS: Anisocytosis SLIGHT = 6-15 cells (100X) (0-5/hpf); Band 24 % (5-11); Lymphocytes 11 % (21-51); MDiff Complete? YES; Monocytes 7 % (0-10); Neutrophil 57 % (42-75); Platelet Morphology Comment Appears Decreased; Polychromasia SLIGHT = 2-3 cells (100X) (0-2/hpf)
[2019-05-30] MEDS ORDERED: Ondansetron PF 4 MG/2 ML Vial ONE (13:10)
[2019-05-30] MEDS ORDERED: Ketorolac Tromethamine 30 MG/ML VIAL ONE (13:10)
[2019-05-30] MEDS ORDERED: Promethazine HCl 25 MG/ML VIAL ONE (13:23)
[2019-05-30] MEDS ORDERED: Azithromycin 500 MG VIAL ONE (13:23)
[2019-05-30 15:35] VITALS: BMI 32.0
[2019-05-30] MEDS ORDERED: Ondansetron PF 4 MG/2 ML Vial IVP PRN (16:31)
[2019-05-30] MEDS ORDERED: Ondansetron ODT 4 MG TAB SL PRN (16:31)
[2019-05-30] MEDS ORDERED: Acetaminophen 325 MG TAB PO PRN (16:31)
[2019-05-30] MEDS ORDERED: Sodium Chloride 0.9% 1,000 ML IV SCH (16:31)
[2019-05-30] MEDS ORDERED: HYDROcodone/Acetaminophen 5/325 mg Tablet PO PRN ×2 (16:31)
[2019-05-30] MEDS: Ketorolac Tromethamine 30 MG/ML VIAL IVP PRN ×2 (18:03→23:52)
[2019-05-30] MEDS ORDERED: Ondansetron ODT 4 MG TAB PO PRN ×2 (19:24→19:30)
[2019-05-30] MEDS ORDERED: guaiFENesin/Codeine Phosphate 200 mg/20 mg 10 ml UD Cup PO PRN (19:29)
--- NOTE | 2019-05-30 19:43 | HP ---
CHIEF COMPLAINT: Cough. HISTORY OF PRESENT ILLNESS: Ms. Chase is a 49-year-old female with past medical history of metastatic esophageal cancer, has been having cough for the last few days and dry cough mainly, but no fever. No chest pain, but she does have this chronic abdominal pain on the left side, which is also getting worse. Initially , the patient went to see a doctor in [place] yesterday and was told she may have a lung infection. She was given a shot of Rocephin and advised to go to the ER next day, so she came to the hospital here, where she was evaluated and thought to have maybe early pneumonia. The ER doctor gave her antibiotic and sent her home, but she started having vomiting while she was in the ER, vomited few times, which was not able to control, so the patient was admitted for this intractable nausea and vomiting. Currently, she states she has a lot of pain in the abdomen on the left side especially which is getting worse and she has some nausea still. Cough is dry as mentioned before, but no fever. No shortness of breath. She did not have any diarrhea. PAST MEDICAL HISTORY: 1. Esophageal adenocarcinoma, metastatic. 2. History of abdominal pain. 3. Anxiety disorder. 4. Gastroesophageal reflux disease. PAST SURGICAL HISTORY: Status post hysterectomy, status post endoscopy. CURRENT MEDICATIONS: The patient is on: 1. [place] 10/325 q.i.d. p.r.n. 2. Gabapentin 600 t.i.d. 3. Zofran p.r.n. 4. Protonix 40 mg daily. FAMILY HISTORY: Nothing contributory. SOCIAL HISTORY: The patient lives with family. No history of smoking. No history of alcohol. REVIEW OF SYSTEMS: CARDIOVASCULAR: No chest pain. No shortness of breath. RESPIRATORY: Has cough, but no fever. GASTROINTESTINAL: Has abdominal pain, left upper quadrant area. Nausea and vomiting. No diarrhea. CENTRAL NERVOUS SYSTEM: No headache. No dizziness. PHYSICAL EXAMINATION: GENERAL: The patient is alert, awake, oriented x3. VITAL SIGNS: Temperature 98, pulse 87, respirations 20, blood pressure 100/60. HEENT: Head is normocephalic, atraumatic. Pupils are equal and reactive. Nasopharynx is pale and dry. NECK: Supple. No JVD. LUNGS: Bilaterally air entry present. There are some few crackles on the left base area. No wheezing. HEART: S1 and S2, regular. ABDOMEN: Soft, tenderness present in the left upper quadrant and epigastrium as well. No guarding. No rigidity. Bowel sounds present. RECTAL: Deferred. CENTRAL NERVOUS SYSTEM: No focal deficits. LABORATORY DATA: CBC shows WBC 10, hemoglobin 11, hematocrit 33, platelets 129. Metabolic panel; sodium 141, potassium 3.5, chloride 104, CO2 of 28, Chest x-ray negative for infiltrates. EKG shows normal sinus rhythm, no acute ST-T changes. ASSESSMENT: 1. Intractable nausea and vomiting. 2. Abdominal pain, left upper quadrant and epigastrium. Worsening. 3. Questionable pneumonia. 4. Esophageal cancer, metastatic. PLAN: 1. Vital signs q.4 hours. 2. Activities, as tolerated. 3. Allergies, NKDA. 4. Diet, regular. 5. Continue home medications. 6. IV fluids, D5 half at 70 mL/h. 7. Obtain GI consult. 8. Rocephin 1 g IV piggyback daily. 9. Toradol 30 mg IVP q.6 hours p.r.n. We will continue home medications. 10. Robitussin p.r.n. Job ID: [id number] MTDD
[2019-05-30] MEDS: Gabapentin 300 MG CAP PO SCH (20:08)
[2019-05-31] MEDS: Sodium Chloride 0.9% 1,000 ML IV SCH ×2 (01:44→03:06)
[2019-05-31] MEDS: Gabapentin 300 MG CAP PO SCH (08:03)
[2019-05-31] MEDS ORDERED: cefTRIAXone\\ROCEPHIN 1 GM in Sodium Chloride 0.9% 100 ML IVPB SCH (12:00)
[2019-05-31 12:31] VITALS: BP 133/83; TEMP 98.5
[2019-05-31] MEDS ORDERED: Azithromycin 500 MG in Sodium Chloride 0.9% 250 ML 250 ML IVPB SCH (13:00)
== END 2019-05-31 13:09 | disposition home or self-care (01) ==
LOC: ERS 11:40 → ONC 15:29
PROVIDERS: ADMIT Internal Medicine; ATTEND Internal Medicine
DX: R05 Cough (principal); R11.2 Nausea with vomiting, unspecified; G89.29 Other chronic pain; R10.12 Left upper quadrant pain; R10.13 Epigastric pain; F41.9 Anxiety disorder, unspecified; K21.9 Gastro-esophageal reflux disease without esophagitis; C15.9 Malignant neoplasm of esophagus, unspecified; C78.7 Secondary malignant neoplasm of liver and intrahepatic bile duct; Z79.899 Other long term (current) drug therapy
CPT/HCPCS: 36415; 71045; 80053; 83605; 85025; 87040; 93005; 96361; 96365; 96366; 96367; 96375; 96376; G0378; J0456; J0696; J1885; J2405; J2550; J3490

== ENCOUNTER 2019-06-29 05:03 | Emergency (ER) | payer OTHER ==
[2019-06-29] MEDS ORDERED: Ondansetron ODT 4 MG TAB ONE (05:07)
[2019-06-29] MEDS ORDERED: Metoclopramide HCl 10 MG/2 ML VIAL ONE (05:28)
[2019-06-29 05:47] LABS: Hemoglobin 11.6 g/dL (12.0-16.0); Mean Corpuscular HGB CONC 34.3 g/dL (32.0-36.0); Mean Corpuscular Hemoglobin 35.5 pg (27.0-31.0); Mean Platelet Volume 7.2 fL (7.4-10.4); Platelet Count 137 thou/uL (130-400); RBC Distribution Width 14.9 % (11.5-14.5); Red Blood Cell (RBC) Count 3.26 mill/uL (4.20-5.40); White Blood Cell (WBC) Count 33.2 thou/uL (4.8-10.8)
[2019-06-29 05:54] LABS: BHCG - Serum POSITIVE (NEGATIVE); Pregs Control Background? CLEAR/WHITE (CLR/WHITE); Pregs Control Bar Appear? YES (CONTROL BAR)
[2019-06-29 06:10] LABS: ALT (SGPT) 21 U/L (8-55); AST (SGOT) 43 U/L (5-34); Albumin 3.7 g/dL (3.5-5.0); Alkaline Phosphatase 238 U/L (40-110); Anion Gap 13 mmol/L (10-20); BUN (Urea Nitrogen) 12 mg/dL (7.0-18.7); Bilirubin, Total 0.9 mg/dL (0.2-1.2); Calc. Creatinine Clearance 0 mL/min (70-130); Calcium 9.1 mg/dL (7.8-10.44); Carbon Dioxide 29 mmol/L (22-29); Chloride 101 mmol/L (98-107); Estimated GFR-MDRD Greater than 90; Globulin 3.5 g/dL (2.4-3.5); Glucose 121 mg/dL (70-105); Lipase Less than 4 U/L (8-78); Potassium 4.1 mmol/L (3.5-5.1); Protein, Total 7.2 g/dL (6.0-8.3); Sodium 139 mmol/L (136-145)
[2019-06-29 06:12] LABS: Band 12 % (5-11); MDiff Complete? YES; Macrocytosis SLIGHT = 6-15 cells (100X) (0-5/hpf); Metamyelocyte 1 % (0-0); Monocytes 2 % (0-10); Neutrophil 85 % (42-75); Platelet Morphology Comment Appears Adequate
[2019-06-29] MEDS ORDERED: Ketorolac Tromethamine 30 MG/ML VIAL ONE (07:35)
--- NOTE | 2019-06-29 08:29 | RAD ---
CHEST 1 VIEW: HISTORY: Left side abdominal pain. COMPARISON: 05/30/2019. FINDINGS: Stable right-sided MediPort catheter. Normal cardiac silhouette. Pulmonary vessels and hilum are no rmal. Minimal blunting of the left costophrenic angles with veil-like opacity in the left lung base suggesting a small pleural effusion. Superimposed parenchymal change is suspected. No pneumothorax. IMPRESSION: Pleural and parenchymal change in the left lung base. Parenchymal change may be due to atelectasis, pneumonia, or aspiration. Correlate clinically. POS: PPP
--- NOTE | 2019-06-29 08:57 | CT ---
ABDOMEN CT WITH CONTRAST PELVIC CT WITH CONTRAST: HISTORY: Malignant neoplasm of lower third of esophagus. Chemotherapy on Monday. Left lower quadrant and lef t upper abdominal pain. Intractable vomiting x3 days. COMPARISON: 05/07/2019. CORRELATION: PET imaging . FINDINGS: ABDOMEN CT: Findings compatible with esophagectomy and gastric pull-through are noted, but incompletely evaluated . Trace right-sided pleural effusion. Moderate left-sided pleural effusion with left lower lobe con solidation due to passive atelectasis, aspiration, or pneumonia. Heart size is normal. A small amount of anterior pericardial fluid. Thoracic aorta and abdominal ao rta have a normal caliber. No periaortic fat stranding. Gallbladder is unremarkable. Portal vein is patent. Spleen and adrenal glands have appropriate attenuation. There is atrophy of the pancreas. There is hypoattenuation of the hepatic parenchyma, diffusely. There is redemonstration of an incomp letely characterized peripherally enhancing predominantly centrally hypodense mass measuring 6.4 x 5. 5 cm (previously measuring 5.3 x 5.1 cm. There does appear to be interval growth. Attenuation coeff icient is 31 Hounsfield units, implying a central cystic or possibly necrotic component. A small foc us of hypoattenuation adjacent to the falciform ligament is nonspecific and unchanged. There is sara tion hypodensity adjacent to the gallbladder. There is no gastrohepatic, retrocrural, or periportal lymphadenopathy. Symmetric enhancement of the kidneys. Subcentimeter hypodensity in the right renal cortex cannot be further characterized. Bilaterally, no obstructive uropathy. No mesenteric mass, lymphadenopathy, free air, or free fluid. Limited evaluation of the alimentary c anal by the absence of oral contrast. Findings are compatible with gastric pull-through. No evidenc e of small bowel obstruction. Unremarkable ileocecal junction. Nondistended fluid-filled appendix. No periappendiceal inflammatory change. Scattered fecal material in a nondistended, nondilated colo n. Diverticulosis, without evidence of diverticulitis. PELVIC CT: No mass, lymphadenopathy, free air, or free fluid. Hysterectomy changes are noted. Urinary bladder is unremarkable. IMPRESSION: 1. Findings compatible with gastric pull through. 2. Left-sided and right-sided pleural effusions. Consolidation in the left lower lobe may represent atelectasis, aspiration, or pneumonia. Correlate clinically. 3. Redemonstration of a right hepatic lobe mass, at the hepatic dome. Malignant process is favored until proven otherwise. There has been documented hypermetabolic activity on previous PET imaging. A predominantly necrotic metastatic focus is favored. Additional hepatic metastatic deposits are not appreciated. There is stable hypoattenuation of the liver at the level of the falciform ligament as well as adjacent to the gallbladder. POS: PPP
[2019-06-29] MEDS ORDERED: Iopamidol-370 76% 500 ML 1 ML ONE (09:59)
== END 2019-06-29 07:43 | disposition home or self-care (01) ==
LOC: ERS 05:03
DX: G89.29 Other chronic pain (principal); R10.10 Upper abdominal pain, unspecified; R11.2 Nausea with vomiting, unspecified; F41.9 Anxiety disorder, unspecified; C15.9 Malignant neoplasm of esophagus, unspecified; C78.7 Secondary malignant neoplasm of liver and intrahepatic bile duct; Z79.899 Other long term (current) drug therapy; Z79.891 Long term (current) use of opiate analgesic
CPT/HCPCS: 36415; 71045; 74177; 80053; 83690; 84702; 84703; 85025; 96365; 96375; J1885; J2765; Q0162; Q9967

== ENCOUNTER 2019-07-29 19:29 | Emergency (ER) | payer OTHER, MEDICAID ==
--- NOTE | 2019-07-29 21:15 | RAD ---
Portable frontal chest radiograph: 07/29/2019 COMPARISON: 06/29/2019 HISTORY: Esophageal cancer, liver cancer, nausea and vomiting FINDINGS: There is a left sided catheter curling over the lung base. There is mild pleural and parenc hymal opacity within the left lung base as well, improved when compared to the 06/29/[address] exam. There is a CT injectable right-sided Port-A-Cath. No focal consolidation or alveolar edema. No pneumothorax . IMPRESSION: No acute findings are evident.
[2019-07-29] MEDS ORDERED: Promethazine HCl 25 MG/ML VIAL ONE (21:16)
[2019-07-29] MEDS ORDERED: Morphine 4 MG/ML VIAL ONE (21:16)
[2019-07-29 21:26] LABS: #Eosinphils 0.1 thou/uL (0.0-0.7); #Lymphocytes 0.8 thou/uL (1.20-3.40); #Monocytes 0.5 thou/uL (0.11-0.59); #Neutrophils 3.9 thou/uL (1.40-6.50); %Eosinophils 1.1 % (0.0-10.0); %Lymphocytes 15.6 % (21.0-51.0); %Monocytes 9.2 % (0.0-10.0); Hemoglobin 8.5 g/dL (12.0-16.0); Mean Corpuscular HGB CONC 33.5 g/dL (32.0-36.0); Mean Corpuscular Hemoglobin 35.3 pg (27.0-31.0); Mean Platelet Volume 7.5 fL (7.4-10.4); Platelet Count 247 thou/uL (130-400); RBC Distribution Width 13.9 % (11.5-14.5); Red Blood Cell (RBC) Count 2.42 mill/uL (4.20-5.40); White Blood Cell (WBC) Count 5.3 thou/uL (4.8-10.8)
[2019-07-29 21:37] LABS: ALT (SGPT) 16 U/L (8-55); AST (SGOT) 53 U/L (5-34); Albumin 2.5 g/dL (3.5-5.0); Alkaline Phosphatase 277 U/L (40-110); Anion Gap 11 mmol/L (10-20); BUN (Urea Nitrogen) 6 mg/dL (7.0-18.7); Bilirubin, Total 0.6 mg/dL (0.2-1.2); CK (CPK) 42 U/L (29-168); Calc. Creatinine Clearance 0 mL/min (70-130); Calcium 7.9 mg/dL (7.8-10.44); Carbon Dioxide 28 mmol/L (22-29); Chloride 102 mmol/L (98-107); Estimated GFR-MDRD Greater than 90; Globulin 3.6 g/dL (2.4-3.5); Glucose 109 mg/dL (70-105); Lipase Less than 4 U/L (8-78); Potassium 3.5 mmol/L (3.5-5.1); Protein, Total 6.1 g/dL (6.0-8.3); Sodium 137 mmol/L (136-145)
[2019-07-29 22:53] LABS: Bilirubin Negative (Negative); Blood, Urine Negative (Negative); Clarity Turbid (Clear); Glucose, Urine (Dipstick) Normal (Negative); Leukocyte 250 Leu/uL (Negative); Mucous/LPF Rare LPF (<2+); Nitrite Negative (Negative); Protein, Urine (Dipstick) 10 mg/dL (Neg-Trace); RBC/HPF 0-3 HPF (0-3); Renal Epithelial 0-3 HPF (None Seen); WBC/HPF 0-3 HPF (0-3)
[2019-07-29 22:58] LABS: Bacteria/HPF 2+ HPF (None Seen)
== END 2019-07-29 23:23 | disposition home or self-care (01) ==
LOC: ERS 19:29
DX: R11.2 Nausea with vomiting, unspecified (principal); F41.9 Anxiety disorder, unspecified; Z79.899 Other long term (current) drug therapy
CPT/HCPCS: 36415; 71045; 80053; 81003; 81015; 82550; 83690; 85025; 96361; 96374; 96375; J2270; J2550

== ENCOUNTER 2019-10-01 13:52 | Outpatient (CLI) | payer OTHER ==
[~2019-10-01 13:52] MED LIST changes: -ISOVUE-370 76%-LOCM 1 ML ONE; +Iopamidol-370 76% 500 ML 1 ML ONE
--- NOTE | 2019-10-01 15:44 | CT ---
CT chest with IV contrast CT abdomen and pelvis with IV contrast HISTORY: Esophageal cancer with lung and liver metastases. Restaging. COMPARISON: CT abdomen and pelvis 06/29/2019. CTA chest 03/13/2019. FINDINGS: Left pleural fluid and basilar atelectasis have improved since the prior exams. Postoperati ve changes of the mediastinum consistent with esophagectomy and gastric pull-through. Bone islands of the left humeral head and pelvis are stable. Within the anterior segment left lung upper lobe, a new 0.6 cm semisolid nodule has developed. A 0.3 cm semisolid nodule at the posterior medial aspect of the right lower lobe is stable. A new 0.6 cm solid subpleural nodule is present at the right posterolateral lung base. The large very heterogeneous central low density aggressive mass centered within the upper right live r lobe now measures 10.7 cm x 9.7 cm x 8.4 cm greatest diameters where it was most recently 6.4 cm x 5.5 cm x 4.4 cm. No free air or free fluid within the abdomen. Urinary bladder is decompressed. There are degenerative changes of the lumbar spine and hips. IMPRESSION : Worsening of disease, with significant enlargement of the peripherally enhancing liver mass and 2 new small lung nodules. Decreasing size of left pleural effusion and left lower lobe atelectasis.
== END 2019-10-01 13:53 | disposition home or self-care (01) ==
LOC: BICCT 13:52
PROVIDERS: ATTEND Internal Medicine Hematology & Oncology
DX: C15.5 Malignant neoplasm of lower third of esophagus (principal); C78.00 Secondary malignant neoplasm of unspecified lung; C78.7 Secondary malignant neoplasm of liver and intrahepatic bile duct; R91.8 Other nonspecific abnormal finding of lung field; J90 Pleural effusion, not elsewhere classified; J98.11 Atelectasis
CPT/HCPCS: 71260; 74177; Q9967

== ENCOUNTER 2019-10-16 10:01 | Emergency (ER) | payer OTHER ==
[2019-10-16 11:12] LABS: ALT (SGPT) 25 U/L (8-55); AST (SGOT) 58 U/L (5-34); Albumin 2.6 g/dL (3.5-5.0); Alkaline Phosphatase 303 U/L (40-110); Anion Gap 8 mmol/L (10-20); BUN (Urea Nitrogen) 12 mg/dL (7.0-18.7); CK (CPK) 34 U/L (29-168); Calc. Creatinine Clearance 0 mL/min (70-130); Calcium 7.9 mg/dL (7.8-10.44); Carbon Dioxide 29 mmol/L (22-29); Chloride 101 mmol/L (98-107); Estimated GFR-MDRD Greater than 90; Globulin 3.6 g/dL (2.4-3.5); Glucose 90 mg/dL (70-105); Lipase Less than 4 U/L (8-78); Potassium 4.1 mmol/L (3.5-5.1); Protein, Total 6.2 g/dL (6.0-8.3); Sodium 134 mmol/L (136-145)
[2019-10-16 11:41] LABS: Band 10 % (5-11); Lymphocytes 70 % (21-51); MDiff Complete? YES; Macrocytosis SLIGHT = 6-15 cells (100X) (0-5/hpf); Mean Corpuscular HGB CONC 33.2 g/dL (32.0-36.0); Mean Corpuscular Hemoglobin 34.6 pg (27.0-31.0); Mean Platelet Volume 7.3 fL (7.4-10.4); Monocytes 2 % (0-10); Neutrophil 16 % (42-75); Platelet Count 218 thou/uL (130-400); Platelet Morphology Comment Appears Adequate; RBC Distribution Width 14.9 % (11.5-14.5); Red Blood Cell (RBC) Count 3.18 mill/uL (4.20-5.40); White Blood Cell (WBC) Count 0.5 thou/uL (4.8-10.8)
--- NOTE | 2019-10-16 12:47 | CT ---
Exam: CT angiogram of the chest HISTORY: Chest tightness, starting last night. Esophageal adenocarcinoma. Status post treatment. COMPARISON: 03/13/2019 TECHNIQUE: CT angiogram of the chest is performed in the axial plane. Three-dimensional reformatted i mages are submitted for interpretation FINDINGS: Mediastinum: Postoperative changes compatible with gastric pull-through. No mass, lymphadenopathy or hematoma. HEART: Normal heart size. Small amount of pericardial fluid. Aorta: Limited evaluation due to inadequate contrast opacification. No aneurysm. Upper solid abdominal viscera: There is a fatty sparing and fatty infiltration of the liver. There is a large mass occupying the seventh and eighth segment of the liver, worrisome for metastases until proven otherwise. Mass measures 9.0 x 9.5 cm. There is atrophy of the pancreas. Trachea and central bronchi: Patent Pleural spaces: Small bilateral effusions. Lung parenchyma: Left lower lobe consolidation due to atelectasis, pneumonia or aspiration. Pneumothorax: None Osseous structures: No lytic or blastic lesions Pulmonary arteries: Adequate contrast opacification pulmonary arterial system to the level of segment al arteries. No filling defect to suggest pulmonary embolism IMPRESSION: 1. No evidence of pulmonary artery embolism to segmental arteries 2. Large mass occupying the right hepatic lobe segments 7 and 8. Metastases until proven otherwise.
[2019-10-16] MEDS ORDERED: Iopamidol-370 76% 500 ML 1 ML ONE (13:14)
[2019-10-16] MEDS ORDERED: Morphine 4 MG/ML VIAL ONE (13:29)
[2019-10-16] MEDS ORDERED: Ondansetron PF 4 MG/2 ML Vial ONE (13:29)
--- NOTE | 2019-10-16 14:23 | RAD ---
CHEST 1 VIEW: INDICATION: A 49-year-old female with chest tightness that began last night. The patient has recently begun chem otherapy. COMPARISON: Prior single view of the chest dated 07/29/2019. FINDINGS: There is an area of subsegmental atelectasis involving the lower lobe and left pleural effusion. The re is mild cardiomegaly. There is a right subclavian chest wall port in place. A small bone island is seen within the left humeral head. IMPRESSION: Mild cardiomegaly and persistent tiny left pleural effusion with subsegmental atelectasis. POS: BH
== END 2019-10-16 15:37 | disposition home or self-care (01) ==
LOC: ERS 10:01
DX: C15.9 Malignant neoplasm of esophagus, unspecified (principal); C78.7 Secondary malignant neoplasm of liver and intrahepatic bile duct; R10.9 Unspecified abdominal pain; R11.2 Nausea with vomiting, unspecified; R07.9 Chest pain, unspecified; F41.9 Anxiety disorder, unspecified; Z79.891 Long term (current) use of opiate analgesic; Z79.899 Other long term (current) drug therapy
CPT/HCPCS: 36415; 36600; 71045; 71275; 80053; 82550; 83690; 84484; 85025; 93005; 96374; 96375; J2270; J2405; Q9967

== ENCOUNTER 2019-12-10 13:41 | Inpatient (IN) | payer OTHER ==
[2019-12-10] MEDS ORDERED: Iopamidol-370 76% 500 ML 1 ML ONE (14:05)
[2019-12-10] MEDS ORDERED: HYDROcodone/Acetaminophen 10/325 mg Tablet ONE (14:28)
[2019-12-10] MEDS ORDERED: Ondansetron PF 4 MG/2 ML Vial ONE (14:28)
[2019-12-10 14:50] LABS: Hemoglobin 8.8 g/dL (12.0-16.0); Mean Corpuscular HGB CONC 32.6 g/dL (32.0-36.0); Mean Platelet Volume 8.1 fL (7.4-10.4); Platelet Count 158 thou/uL (130-400); RBC Distribution Width 16.5 % (11.5-14.5); Red Blood Cell (RBC) Count 2.43 mill/uL (4.20-5.40); White Blood Cell (WBC) Count 10.2 thou/uL (4.8-10.8)
--- NOTE | 2019-12-10 14:55 | RAD ---
EXAM: Single view of the chest HISTORY: Nausea and vomiting COMPARISON: 12/04/2019 FINDINGS: Single view of the chest shows an enlarged but stable cardiomediastinal silhouette. The Me diport is unchanged in position. There is a stable right mediastinal mass which represents the stomach from prior gastric pull up procedure. There may be a small left pleural effusion with adjace nt atelectasis. The bones are unremarkable IMPRESSION: Left pleural effusion with adjacent atelectasis
[2019-12-10 15:12] LABS: Anisocytosis SLIGHT = 6-15 cells (100X) (0-5/hpf); Band 21 % (5-11); Hypochromia SLIGHT = 6-15 cells (100X) (0-5/hpf); Lymphocytes 2 % (21-51); MDiff Complete? YES; Macrocytosis SLIGHT = 6-15 cells (100X) (0-5/hpf); Monocytes 4 % (0-10); Neutrophil 70 % (42-75); Platelet Morphology Comment Appears Adequate; Polychromasia SLIGHT = 2-3 cells (100X) (0-2/hpf); Reactive Lymphocytes 3 % (0-10); Target Cells SLIGHT = 2-5 cells (100X) (0-1/hpf)
[2019-12-10 15:35] LABS: ALT (SGPT) 12 U/L (8-55); AST (SGOT) 39 U/L (5-34); Albumin 1.9 g/dL (3.5-5.0); Alkaline Phosphatase 408 U/L (40-110); Anion Gap 11 mmol/L (10-20); BUN (Urea Nitrogen) 13 mg/dL (7.0-18.7); Bilirubin, Total 0.7 mg/dL (0.2-1.2); CK (CPK) 44 U/L (29-168); Calc. Creatinine Clearance 0 mL/min (70-130); Calcium 7.7 mg/dL (7.8-10.44); Carbon Dioxide 24 mmol/L (22-29); Chloride 103 mmol/L (98-107); Estimated GFR-MDRD Greater than 90; Globulin 3.1 g/dL (2.4-3.5); Glucose 91 mg/dL (70-105); Lipase Less than 4 U/L (8-78); Magnesium 1.7 mg/dL (1.6-2.6); Potassium 3.3 mmol/L (3.5-5.1); Sodium 135 mmol/L (136-145)
[2019-12-10 15:38] LABS: BHCG - Serum Negative (NEGATIVE); Pregs Control Background? CLEAR/WHITE (CLR/WHITE); Pregs Control Bar Appear? YES (CONTROL BAR)
[2019-12-10 15:55] LABS: Bilirubin Negative (Negative); Blood, Urine Negative (Negative); Clarity Clear (Clear); Glucose, Urine (Dipstick) Normal (Negative); Ketone, Urine 10 mg/dL (Negative); Leukocyte Negative Leu/uL (Negative); Nitrite Negative (Negative); Protein, Urine (Dipstick) 30 mg/dL (Neg-Trace); Specific Gravity, Urine 1.025 (1.002-1.036); Squamous Epithelial 0-3 HPF (0-3); Urobilinogen Normal mg/dL (Less than 2)
[2019-12-10 16:12] LABS: Bacteria/HPF 1+ HPF (None Seen); Yeast-Budding Rare HPF (None Seen)
[2019-12-10] MEDS ORDERED: Promethazine HCl 25 MG/ML VIAL ONE (16:38)
--- NOTE | 2019-12-10 17:15 | CT ---
CT ANGIOGRAM THORAX WITH CONTRAST: (CTA pulmonary angiogram) DATE: 12/10/2019 HISTORY: 49-year-old female with dyspnea. COMPARISON: 12/04/2019 TECHNIQUE: IV injection of iodinated contrast. Scan acquisition timing attempted to coincide with iodinated contrast bolus reaching maximal density in pulmonary arteries. 3-D MIP reconstructions. FINDINGS: Filling defects in third or fourth order right lower lobe pulmonary artery branches are again noted. No other thrombus in pulmonary arteries identified. Large central and bilateral paracentral, and bilateral lateral chronic posterior mediastinal mass wit h suture line around the right side of this mass, is again noted. The right side of this mass could represent gastric pull-up or colonic interposition. There is large amount of fluid associated with th is, which accounts for much of the rest of the mass, especially the left side. Together, this combination of posterior mediastinal gastric pull-up or colonic interposition, and lar ge fluid collection, compresses and narrows the bilateral central pulmonary veins, and severely narrows the right atrium. This may cause resistance to pulmonary venous return. Moderate to large pericardial effusion, unchanged. Small right pleural effusion and moderate-sized left pleural effusion, similar to previous CT. Multifocal patchy groundglass infiltrates throughout anterior segment of right upper lobe appears sli ghtly more dense and more confluent. This may represent COVID-19 pneumonia. High-grade atelectasis of left lower lobe, probably passive due to the left pleural effusion. No thoracic aortic dissection, rupture, or aneurysm. Diffuse anasarca. Severely fatty liver. Large right lobe liver mass. Ascites. IMPRESSION: 1) evidence for chronic pulmonary thromboembolism in branches of right lower lobe pulmonary artery. 2) no evidence of acute pulmonary thrombi wasn't. 3) status post gastric pull-up or colonic interposition. 4) large amount of posterior mediastinal fluid compresses and narrows the pulmonary veins, and especi ally narrows the right atrium, causing resistance to pulmonary venous return. 5) moderate to large pericardial effusion 6.) Moderate size loculated left pleural effusion, and high-grade associated left lower lobe atelecta sis, unchanged 7) severe hepatic steatosis. 8) large liver mass. 9) anasarca and ascites 10) multifocal patchy groundglass infiltrates in anterior segment of right upper lobe may be slightly worse, suspicious for COVID-19 pneumonia.
[2019-12-10] MEDS ORDERED: Cefepime 2 GM VIAL ONE (19:59)
[2019-12-10 21:59] LABS: SARS-CoV-2 NAA Rapid Test Not Detected (NotDetected)
[2019-12-10] MEDS ORDERED: Acetaminophen 500 MG TAB PO PRN (22:44)
[2019-12-10] MEDS ORDERED: Ondansetron PF 4 MG/2 ML Vial IVP PRN (22:44)
[2019-12-10] MEDS ORDERED: Benzonatate 100 MG CAP PO PRN (22:44)
[2019-12-10] MEDS ORDERED: Ondansetron ODT 4 MG TAB PO PRN (22:44)
[2019-12-10] MEDS ORDERED: Vancomycin 1 GM in Premix Bag 1 BAG IVPB SCH (23:30)
[2019-12-10] MEDS ORDERED: Enoxaparin Sodium 80 MG/0.8 ML SYRINGE SC SCH (23:30)
[2019-12-11] MEDS ORDERED: Vancomycin 1 GM/200 ML BAG ONE ×2 (00:05→14:22)
[2019-12-11] MEDS ORDERED: Enoxaparin Sodium 80 MG/0.8 ML SYRINGE ONE (00:05)
[2019-12-11] MEDS: Sodium Chloride 0.9% 1,000 ML IV SCH ×3 (01:13→16:04)
--- NOTE | 2019-12-11 03:49 | HP ---
PRIMARY CARE PROVIDER: Formerly Dr. Lara. PRIMARY ONCOLOGIST: Dr. Reddy Laboy. CHIEF COMPLAINT: Shortness of breath and dizziness. HISTORY OF PRESENT ILLNESS: This is a 49-year-old female with a significant history of metastatic esophageal carcinoma, undergoing chronic chemotherapy, who was recently admitted to [facility] from 12/04/2019 through 12/06/2019 for suspected COVID-19 viral pneumonia. The patient received general supportive management during her hospital course and was discharged home on Omnicef. The patient did not undergo formal COVID-19 testing and had refused the nasal swab and was treated empirically for the infection. The patient stabilized on supportive management and was discharged home on 12/06/2019. The patient states she did well for approximately 3 days when she noticed increasing shortness of breath, decreased activity level and persistent nausea and vomiting. The patient denied any documented fever, chills, or change to her chronic medication regimen. The patient became increasingly dizzy with the shortness of breath and decided to seek medical attention. In the emergency room, the patient underwent general evaluation including plain chest radiographs and CT angiogram of the chest showing a large mediastinal mass with fluid collection compressing the pulmonary veins and right atrium. The patient was also noted with severe compressive atelectasis of the left lower lobe with evidence of pulmonary embolus, likely chronic. The patient received vancomycin and Zosyn in the emergency room in addition to initiation of IV fluids. The patient underwent rapid COVID-19 testing in the emergency room, which was negative. PAST MEDICAL HISTORY: 1. Question of COVID-19 pneumonia with rapid PCR negative, 12/10/2019. 2. Metastatic esophageal carcinoma with current chemotherapy. 3. Remote tobacco use. 4. Gastroesophageal reflux. 5. Neutropenia secondary to chemotherapy. 6. Chronic macrocytic anemia. PAST SURGICAL HISTORY: 1. Status post hysterectomy. 2. Status post question of gastric sleeve. 3. Status post MediPort placement. 4. Status post esophageal resection secondary to esophageal carcinoma. CURRENT MEDICATIONS: 1. Dronabinol 5 mg p.o. daily. 2. Gabapentin 600 mg p.o. t.i.d. 3. [place] 10/325 mg 1 tablet p.o. daily p.r.n. 4. Protonix 20 mg p.o. daily. 5. Omnicef 300 mg p.o. b.i.d. ALLERGIES: NO KNOWN DRUG ALLERGIES. FAMILY HISTORY: Positive for diabetes and hypertension. SOCIAL HISTORY: and resides in the [place], [place] area. Former tobacco user, none currently. No alcohol or illicit drug use. REVIEW OF SYSTEMS: CONSTITUTIONAL: Negative for weight loss or gain, ability to conduct usual activities. SKIN: Negative for rash, itching. EYES: Negative for double vision, pain. ENT/MOUTH: Negative for nose bleeding, neck stiffness, pain, tenderness. CARDIOVASCULAR: Negative for palpitations, dyspnea on exertion, orthopnea. RESPIRATORY: Negative for shortness of breath, wheezing, cough, hemoptysis, fever or night sweats. GASTROINTESTINAL: Negative for poor appetite, abdominal pain, heartburn, nausea, vomiting, constipation, or diarrhea. GENITOURINARY: Negative for urgency, frequency, dysuria, nocturia. MUSCULOSKELETAL: Negative for pain, swelling. NEUROLOGIC/PSYCHIATRIC: Negative for anxiety, depression. ALLERGY/IMMUNOLOGIC: Negative for skin rash, bleeding tendency. Otherwise negative except as stated per HPI. PHYSICAL EXAMINATION: VITAL SIGNS: On admission, blood pressure 90/73, pulse 93, respiratory rate 18, temperature 98 degrees Fahrenheit, O2 saturation 100% on room air. GENERAL APPEARANCE: This is a 49-year-old female, alert and oriented x3, pleasant, responsive, in no acute distress. HEENT: Pupils are equal, round, reactive to light and accommodation. Extraocular muscles are intact. No scleral icterus. No conjunctival injection. Nares patent. OP is clear. Teeth in fair repair. NECK: Supple. No cervical adenopathy. No thyromegaly. No carotid bruits. No JVD appreciated. Cervical spine with full active and passive range of motion. No meningeal signs noted. CHEST: Diminished breath sounds bilaterally. Occasional rhonchi noted. CARDIOVASCULAR EXAM: S1 and S2 without murmur, rub, or gallop. Right upper chest wall with MediPort in place. ABDOMEN: Rounded. Bowel sounds are positive in all 4 quadrants. No palpable mass. No rebound or guarding noted. EXTREMITIES: Warm and dry with fair turgor. Pitting edema to the knees. Pulses palpable distally at the dorsalis pedis, posterior tibial, and popliteal arteries bilaterally. Capillary refill less than 2 seconds. NEUROLOGIC: Cranial nerves 2 through 12 are grossly intact. No focal or lateralizing signs appreciated. PERTINENT LABORATORY AND X-RAY FINDINGS: Sodium 135, potassium 3.3, chloride 103, CO2 of 24, BUN 13, creatinine 0.68, estimated GFR greater than 90. Lactic acid level 1.2, calcium 7.7, magnesium 1.7, AST 39, ALT of 12, alkaline phosphatase 408, total CK of 44, troponin I negative x1. BNP 46. Albumin 1.9. Serum beta-hCG negative. Lipase less than 4. CBC showed a white blood cell count of 10.2, hemoglobin 8.8, hematocrit 27, MCV 111, platelet count 158 with 70% neutrophils, 21% bandemia. Urinalysis positive for protein and ketones. SARS-CoV-2 rapid PCR not detected, 12/10/2019. ASSESSMENT AND PLAN: 1. Pericardial effusion. No evidence of cardiac tamponade by bedside echocardiogram. We will consult Cardiothoracic Surgery Service in the a.m. for further evaluation and recommendations. Repeat 2D transthoracic echocardiogram in the a.m. for further assessment and measurement of current pericardial effusion. Continue telemetry monitoring. 2. Mediastinal mass with compression of the pulmonary veins and right atrium. We will consult Cardiothoracic Surgery Service in the a.m. for any further recommendations of management. Supportive care currently. 3. Hypotension. We will continue intravenous normal saline at 100 mL/h. Avoid antihypertensive medications. Repeat 2D transthoracic echocardiogram in the a.m. 4. Chronic bilateral pulmonary embolus. CT angiogram of the chest showing chronic thromboembolism. We will discuss with Medical Oncology Service regarding the utility of anticoagulation in a patient with esophageal carcinoma. 5. Left lower lobe pneumonia. Suspect large component of atelectasis with potential infectious process. Continue vancomycin 1 g IV q.12 hours with additional cefepime 2 g IV q.12 hours. 6. Nausea and vomiting. Continue IV fluids as outlined previously. Zofran 4 mg IV q.6 hours p.r.n. N.p.o. after midnight. 7. Metastatic esophageal carcinoma. Continue supportive management as outlined previously. Consider Medical Oncology evaluation for coordination of outpatient followup. 8. Prophylaxis. SCDs while in bed. Pepcid 20 mg p.o. b.i.d. 9. Code status, full. Surrogate medical decision maker is the patient's spouse. Job ID: [id number]
[2019-12-11] MEDS ORDERED: Mag-Al 1200 mg/1200 mg/30 ML UDCUP PO PRN (05:18)
[2019-12-11] MEDS ORDERED: Mag-Al 1200 mg/1200 mg/30 ML UDCUP ONE (05:24)
[2019-12-11 05:40] LABS: ALT (SGPT) 13 U/L (8-55); AST (SGOT) 37 U/L (5-34); Albumin 1.9 g/dL (3.5-5.0); Alkaline Phosphatase 389 U/L (40-110); Anion Gap 12 mmol/L (10-20); BUN (Urea Nitrogen) 11 mg/dL (7.0-18.7); Bilirubin, Total 0.6 mg/dL (0.2-1.2); Calc. Creatinine Clearance 0 mL/min (70-130); Calcium 7.2 mg/dL (7.8-10.44); Carbon Dioxide 19 mmol/L (22-29); Chloride 107 mmol/L (98-107); Estimated GFR-MDRD Greater than 90; Glucose 70 mg/dL (70-105); Potassium 3.3 mmol/L (3.5-5.1); Protein, Total 4.9 g/dL (6.0-8.3); Sodium 135 mmol/L (136-145)
[2019-12-11] MEDS ORDERED: Ondansetron PF 4 MG/2 ML Vial ONE ×2 (06:56→10:29)
[2019-12-11 07:34] LABS: Hemoglobin 9.2 g/dL (12.0-16.0); Mean Corpuscular Hemoglobin 35.3 pg (27.0-31.0); Mean Platelet Volume 8.2 fL (7.4-10.4); Platelet Count 133 thou/uL (130-400); RBC Distribution Width 16.6 % (11.5-14.5); White Blood Cell (WBC) Count 7.5 thou/uL (4.8-10.8)
[2019-12-11 07:56] LABS: Band 4 % (5-11); Eosinophils 1 % (0-10); Hypochromia SLIGHT = 6-15 cells (100X) (0-5/hpf); Lymphocytes 8 % (21-51); MDiff Complete? YES; Macrocytosis MODERATE=16-30 cells (100X) (0-5/hpf); Monocytes 3 % (0-10); Neutrophil 84 % (42-75); Platelet Morphology Comment Appears Adequate; Polychromasia SLIGHT = 2-3 cells (100X) (0-2/hpf)
--- NOTE | 2019-12-11 08:18 | ULT ---
ULTRASOUND DOPPLER DUPLEX VENOUS BILATERAL LOWER EXTREMITIES: DATE: 12/11/2019 HISTORY: 49-year-old female with pulmonary thromboembolism. TECHNIQUE: Grayscale, color-flow, and spectral analysis, of the bilateral common femoral, profunda femoral, grea ter saphenous, femoral, popliteal, and posterior tibial, veins. FINDINGS: There is soft tissue edema in the bilateral lower extremities distal to the knees. The posterior tibial veins bilaterally are not visualized. There is no DVT in the rest of the interrogated veins. IMPRESSION: 1) soft tissue edema in the bilateral legs. 2) bilateral posterior tibial veins not visualized. 3) no deep vein thrombosis identified from the groin to knees.
[2019-12-11] MEDS: Gabapentin 300 MG CAP PO SCH ×3 (09:00→20:10)
[2019-12-11] MEDS: Cefepime 2 GM in Sodium Chloride 0.9% 100 ML IVPB SCH ×2 (09:00→20:10)
[2019-12-11] MEDS: Famotidine 20 MG TAB PO SCH ×2 (09:00→20:10)
[2019-12-11] MEDS ORDERED: Vancomycin HCl 1 GM in Sodium Chloride 0.9% 250 ML 250 ML IVPB SCH (09:00)
[2019-12-11] MEDS: Dronabinol 2.5 MG CAP PO SCH (09:00)
[2019-12-11] MEDS ORDERED: Cefepime 2 GM VIAL ONE (09:06)
[2019-12-11] MEDS ORDERED: Famotidine 20 MG TAB ONE (09:06)
[2019-12-11] MEDS ORDERED: Morphine IR Tab 15 MG TAB PO PRN ×2 (11:09→18:13)
[2019-12-11] MEDS ORDERED: Morphine 2 MG/ML VIAL SLOW IVP PRN ×2 (11:09→18:13)
[2019-12-11] MEDS ORDERED: Lorazepam 2 MG/ML VIAL SLOW IVP PRN (11:11)
[2019-12-11] MEDS ORDERED: Morphine 2 MG/ML SYRINGE ONE (13:12)
--- NOTE | 2019-12-11 14:17 | CON ---
DATE OF CONSULTATION: REASON FOR CONSULTATION: Metastatic esophageal cancer. HISTORY OF PRESENT ILLNESS: Ms. Chase is an unfortunate 49-year-old female, who has metastatic esophageal adenocarcinoma. She has completed multiple chemo regimens and radiation and has progressed most recently on Keytruda. In September, she had a CT scan, which showed worsening of her liver mass and two new small lung nodules. She has had a pleural effusion since diagnosis. She had a PleurX catheter at one time, but that was discontinued earlier this year. She was recently discharged from this facility with possible COVID pneumonia; however, she has had 2 negative tests since diagnosis. She began to have increasing shortness of breath yesterday and presented to the emergency room for evaluation. Repeat CT scan showed no acute pulmonary thrombi. There was evidence for her chronic PE. She had a large amount of posterior mediastinal fluid that was compressing the pulmonary veins. There was narrowing of the right atrium causing resistance to pulmonary venous return. She had a [id number] pericardial effusion, which has increased over the past week or so. She has a moderate-sized loculated left pleural effusion. The patient is being admitted for further treatment. The patient was seen at bedside. She continues to have nausea and mild pain. Minimal oral intake in the past 2 weeks. PAST MEDICAL HISTORY: 1. Stage IV metastatic esophageal adenocarcinoma. 2. GERD. 3. Recent hospitalization for pneumonia. PAST SURGICAL HISTORY: 1. Esophagectomy. 2. MediPort placement. ALLERGIES: NO KNOWN DRUG ALLERGIES. HOME MEDICATIONS: 1. Gabapentin. 2. [place]. 3. Lomotil. 4. Lorazepam. 5. Protonix. 6. Synthroid. 7. Sucralfate. FAMILY HISTORY: Father had kidney cancer. SOCIAL HISTORY: , lives with her spouse. No alcohol, tobacco, or illicit drug use. REVIEW OF SYSTEMS: A 10-point review of systems is negative except for noted in HPI. PHYSICAL EXAMINATION: VITAL SIGNS: Temperature 97.8, pulse is 88, respiratory rate 18, BP is 97/72. She is 96% on room air. GENERAL: This is a chronically ill-appearing female, in no acute distress. HEENT: Normocephalic and atraumatic. Pupils are equal and reactive to light. NECK: Supple. CV: Irregular rate and rhythm. LUNGS: Clear anterior. ABDOMEN: Soft and nontender. EXTREMITIES: She has 2+ bilateral lower extremity edema. SKIN: No rash. HEMATOLOGIC: No petechiae or purpura. NEUROLOGIC: Nonfocal. PERTINENT LABORATORY DATA AND X-RAYS: WBCs 7.5, hemoglobin 9.2, hematocrit 29.6 , platelet count 133,000, 84% neutrophils, 4% bands, 3% lymphocytes. Sodium is 135, potassium 3.3, chloride 107, CO2 is 19, BUN is 11, creatinine 0.63, calcium 7.2, bilirubin 0.6, AST is 37, ALT is 13, alkaline phosphatase is 389. Serum total protein is 4.9, albumin 1.9, globulin 3.0. BNP is 45.8. Troponin is negative. Radiology, venogram is negative. ASSESSMENT: 1. Metastatic esophageal cancer. 2. Increasing pericardial effusion. 3. Chronic pleural effusion. 4. Recent hospitalization for pneumonia. DISCUSSION: The patient was seen at bedside and was tearful. We discussed her poor prognosis and likely progression of disease. She is extremely weak, not eating much. It is unlikely that she will receive chemotherapy again. We did discuss advanced directives, pain control, and end of life care. She would like to discuss this further with her family, but I believe she is considering hospice. I will ask Palliative Care to coordinate this for the patient. I will adjust her pain and nausea medications. We will follow along with the hospital course. Thank you for the consult. Job ID: [id number] [facility] HOSPITALRafa
[2019-12-11] MEDS: Vancomycin 1 GM in Premix Bag 1 BAG IVPB SCH (14:20)
--- NOTE | 2019-12-11 15:52 | PDOC.HOSPP ---
- Subjective Subjective: Seen and examined. I find the patient in the emergency department, she is breathing comfortably on room air. She tells me, she gets short of breath with much movement. She tells me that short of breath when she is sleeping. Denies chest pain. Patient with worsening esophageal cancer with metastatic disease, despite follow up with oncology including surgeries, radiation, and chemotherapy. At this point palliative care/hospice is being involved, I agree this is her best option. - Objective Result Diagrams: 12/11/19 07:24 12/11/19 05:01 Radiology Reviewed by me: Yes Hospitalist ROS - Review of Systems All other systems reviewed; all pertinent +/- noted in HPI/Subj - Medication Medications: Active Medications Generic Name Dose Route Start Last Admin Trade Name Freq PRN Reason Stop Dose Admin Al Hydroxide/Mg Hydroxide 30 ml 12/11/19 05:18 12/11/19 05:27 Maalox PO 30 ml Q4H PRN Administration Heartburn or Indigestion Dronabinol 5 mg 12/11/19 09:00 12/11/19 09:00 Marinol PO 5 mg DAILY DYLON Administration Famotidine 20 mg 12/11/19 09:00 12/11/19 09:00 Pepcid PO 20 mg BID DYLON Administration Gabapentin 600 mg 12/11/19 09:00 12/11/19 09:00 Neurontin PO 600 mg TID DYLON Administration Cefepime HCl 2 gm/ Sodium 100 mls @ 200 mls/hr 12/11/19 08:00 12/11/19 09:00 Chloride IVPB 100 mls 0800,2000 DYLON Administration Vancomycin HCl 1 gm/ Device 200 mls @ 166.67 mls/hr 12/11/19 13:00 12/11/19 14:20 IVPB 200 mls 0100,1300 DYLON Administration Morphine Sulfate 2 mg 12/11/19 11:09 12/11/19 13:15 Morphine SLOW IVP 2 mg Q4H PRN Administration Severe Pain (7-10) Ondansetron HCl 4 mg 12/10/19 22:44 12/11/19 06:59 Zofran Odt PO 4 mg Q6H PRN Administration Nausea/Vomiting Ondansetron HCl 4 mg 12/10/19 22:44 12/11/19 10:28 Zofran IVP 4 mg Q6H PRN Administration Nausea/Vomiting Sodium Chloride 10 ml 12/11/19 09:00 12/11/19 09:00 Flush - Normal Saline IVF 10 ml Q12HR DYLON Administration - Exam General Appearance: awake alert, ill appearing Eye: anicteric sclera ENT: normocephalic atraumatic, moist mucosa Neck: supple, symmetric, no lymphadenopathy Heart: no gallops, normal peripheral pulses, murmur present Respiratory: no rales, normal chest expansion, rhonchi, wheezes Gastrointestinal: soft, non-tender, no guarding, no rigidity Extremities: 1+ LE edema Skin: no lesions, no rashes Neurological: cranial nerve grossly intact, no focal deficits Musculoskeletal: generalized weakness Psychiatric: normal affect, A&O x 3 Hosp A/P (1) Pulmonary embolism Code(s): I26.99 - OTHER PULMONARY EMBOLISM WITHOUT ACUTE COR PULMONALE Status : Acute (2) Shortness of breath Code(s): R06.02 - SHORTNESS OF BREATH Status: Acute (3) Abdominal pain Code(s): R10.9 - UNSPECIFIED ABDOMINAL PAIN Status: Acute (4) Lung metastases Code(s): C78.00 - SECONDARY MALIGNANT NEOPLASM OF UNSPECIFIED LUNG Status: Acute (5) Malignant neoplasm of esophagus Status: Acute (6) Metastases to the liver Code(s): C78.7 - SECONDARY MALIG NEOPLASM OF LIVER AND INTRAHEPATIC BILE DUCT Status: Acute (7) Nausea and vomiting Code(s): R11.2 - NAUSEA WITH VOMITING, UNSPECIFIED Status: Acute (8) Pneumonia due to COVID-19 virus Code(s): U07.1 - COVID-19; J12.89 - OTHER VIRAL PNEUMONIA Status: Acute - Plan Plan: admit to medical unit with telemetry cardiovascular thoracic surgery consultation, recommendations appreciated oncology consultation, recommendations appreciated Palliative care consultation, recommendations appreciated patient with groundglass opacities on CT chest concerning for covid patient's is actively sick with covid positive although she has a negative rapid covid test, false negative rate of 30% is concerning recommend nucleic acid covid test covid antibody added CT angiography of the chest noted will need full dose anticoagulation for pulmonary embolism, held until evaluated by surgery has had Pleurx catheter in the past, now removed, with loculated pleural effusion pericardial effusion supplemental oxygen as needed to maintain O2 saturation's IV antibiotics Consider steroids continue home medications as able blood pressure control blood sugar control G.I. prophylaxis DVT prophylaxis Disposition: palliative care/hospice to be involved. Goals of care to be established. Prognosis is poor despite maximal medical/ surgical therapy
--- NOTE | 2019-12-11 16:46 | CON ---
DATE OF CONSULTATION: 12/11/2019 REASON FOR CONSULTATION: Was not specified. CONSULTING PHYSICIAN: Dr. Lebron. HISTORY OF PRESENT ILLNESS: The patient is a pleasant 49-year-old female, with the unfortunate diagnosis of metastatic esophageal carcinoma. She came in last night because she was concerned she could have COVID-19 pneumonia because her has it. She had a negative test here. She has had some cough and congestion. She feels like she may be aspirating some. She had a CT scan, which demonstrated pericardial effusion and mediastinal mass at the area of the esophagus. She also has chronic bilateral pulmonary emboli, which were unchanged and some component of a left effusion. PAST MEDICAL HISTORY: 1. Metastatic esophageal cancer. 2. Gastroesophageal reflux. 3. Macrocytic anemia. PAST SURGICAL HISTORY: 1. Hysterectomy. 2. Gastric sleeve. 3. MediPort placement. 4. Esophageal resection and gastric pull-up. MEDICATIONS: Prior to admission; 1. Dronabinol. 2. Gabapentin. 3. [place]. 4. Protonix. 5. Omnicef. ALLERGIES: NONE. FAMILY MEDICAL HISTORY: Remarkable for diabetes and hypertension. SOCIAL HISTORY: She denies smoking in the past, although her history and physical says she is a former tobacco user. Does not consume alcohol. REVIEW OF SYSTEMS: Remarkable for weight loss, acid reflux, poor appetite, but no difficulty swallowing. PHYSICAL EXAMINATION: VITAL SIGNS: Temperature 97.8, pulse 78, blood pressure 94/71, and O2 saturation 98% on room air. GENERAL: She is an obese female. HEENT: Remarkable for alopecia. NECK: No JVD. LUNGS: Clear anteriorly bilaterally. CARDIOVASCULAR: S1 and S2. Regular. ABDOMEN: Soft, obese, and nontender. EXTREMITIES: Trace edema throughout. LABORATORY DATA: White blood cell count 7.5, hematocrit 29.6, and platelet count 133. Sodium 135, potassium 3.3, chloride 107, CO2 of 19, BUN 11, creatinine 0.6, and glucose 70. COVID test was negative. CT of the chest was reviewed personally, it shows some pericardial fluid. She has a large round mass-like area with air-fluid level, mid esophagus, this could be the area of the previous pull-up. She has some chronic changes on the left. She also has effusion on that side which I would presume is probably metastatic. ASSESSMENT: 1. Metastatic esophageal cancer. 2. Probably some component of aspiration. 3. Pericardial effusion. 4. Mediastinal mass. RECOMMENDATIONS: I agree with the empiric antibiotics. I would not recommend any interventional therapy or surgery otherwise, as her prognosis is poor. Would recommend DNR, palliative/hospice care. Job ID: [id number]
[2019-12-11] MEDS: Ondansetron HCl/PF 8 MG in Sodium Chloride 0.9% 50 ML IVPB SCH ×2 (17:55→21:10)
[2019-12-11] MEDS: HYDROcodone/Acetaminophen 10/325 mg Tablet PO PRN (20:22)
[2019-12-11] MEDS: Enoxaparin Sodium 100 MG/ML SYRINGE SC SCH (20:47)
[2019-12-11 21:18] LABS: SARS-CoV-2 IgG Ab Non-Reactive (NonReactive); SARS-CoV-2 IgG Index 0.07 S/CO (< 1.40)
[2019-12-11] MEDS: Promethazine HCl 12.5 MG in Sodium Chloride 0.9% 50 ML IVPB PRN (21:28)
[2019-12-11 23:25] VITALS: BMI 32.1
[2019-12-12] MEDS: Vancomycin 1 GM in Premix Bag 1 BAG IVPB SCH (00:47)
[2019-12-12] MEDS: Ondansetron HCl/PF 8 MG in Sodium Chloride 0.9% 50 ML IVPB SCH (04:19)
[2019-12-12] MEDS: Sodium Chloride 0.9% 1,000 ML IV SCH (06:01)
[2019-12-12] MEDS ORDERED: Prevnar 13-Val Conj/PF 0.5 ML SYRINGE IM ONE (09:00)
[2019-12-12] MEDS: Cefepime 2 GM in Sodium Chloride 0.9% 100 ML IVPB SCH (09:13)
[2019-12-12] MEDS: Enoxaparin Sodium 100 MG/ML SYRINGE SC SCH (09:14)
[2019-12-12] MEDS: Dronabinol 2.5 MG CAP PO SCH (09:14)
[2019-12-12] MEDS: HYDROcodone/Acetaminophen 10/325 mg Tablet PO PRN (09:15)
[2019-12-12] MEDS: Famotidine 20 MG TAB PO SCH (09:15)
[2019-12-12] MEDS: Gabapentin 300 MG CAP PO SCH ×2 (09:15→14:00)
[2019-12-12] MEDS ORDERED: Promethazine 25 MG TAB PO PRN (09:16)
[2019-12-12] MEDS ORDERED: HYDROcodone/Acetaminophen 10/325 mg Tablet PO PRN (09:17)
[2019-12-12] MEDS: Promethazine HCl 12.5 MG in Sodium Chloride 0.9% 50 ML IVPB PRN (10:03)
[2019-12-12 12:43] LABS: Vancomycin, Trough 20.4 ug/mL
[2019-12-12] MEDS ORDERED: Vancomycin HCl 750 MG in Sodium Chloride 0.9% 250 ML 250 ML IVPB SCH (13:00)
--- NOTE | 2019-12-12 13:45 | PDOC.HOSPP ---
- Subjective Subjective: Seen and examined. Discussed code status at length, patient understands the terminal nature of her condition. She does not want to be kept alive artificially on machines. Patient requesting DNR and DNI status - she understand that withholding those measure would mean she would . She is interested in hospice. - Objective Vital Signs & Weight: Vital Signs (12 hours) Temp Pulse Resp BP Pulse Ox 12/12/19 12:47 97.3 F L 93 18 90/71 99 12/12/19 08:55 97.4 F L 107 H 20 96/71 96 12/12/19 03:25 97.5 F L 90 14 102/63 97 Weight Admit Weight 199 lb 3.2 oz Weight 199 lb 3.2 oz I&O: 12/11/19 12/12/19 12/13/19 06:59 06:59 06:59 Intake Total 872 Balance 872 Result Diagrams: 12/11/19 07:24 12/11/19 05:01 Hospitalist ROS - Review of Systems All other systems reviewed; all pertinent +/- noted in HPI/Subj - Medication Medications: Active Medications Generic Name Dose Route Start Last Admin Trade Name Freq PRN Reason Stop Dose Admin Al Hydroxide/Mg Hydroxide 30 ml 12/11/19 05:18 12/11/19 05:27 Maalox PO 30 ml Q4H PRN Administration Heartburn or Indigestion Dronabinol 5 mg 12/11/19 09:00 12/12/19 09:14 Marinol PO 5 mg DAILY DYLON Administration Enoxaparin Sodium 90 mg 12/11/19 21:00 12/12/19 09:14 Lovenox SC 90 mg 0900,2100 DYLON Administration Famotidine 20 mg 12/11/19 09:00 12/12/19 09:15 Pepcid PO 20 mg BID DYLON Administration Gabapentin 600 mg 12/11/19 09:00 12/12/19 09:15 Neurontin PO 600 mg TID DYLON Administration Cefepime HCl 2 gm/ Sodium 100 mls @ 200 mls/hr 12/11/19 08:00 12/12/19 09:13 Chloride IVPB 100 mls 0800,2000 DYLON Administration Sodium Chloride 1,000 mls @ 55 mls/hr 12/11/19 15:21 12/12/19 06:01 Normal Saline 0.9% IV 1,000 mls .[id number] DYLON Administration Promethazine HCl 12.5 mg/ 50.5 mls @ 202 mls/hr 12/11/19 20:33 12/12/19 10:03 Sodium Chloride IVPB 50.5 mls Q6H PRN Administration Nausea/Vomiting Vancomycin HCl 750 mg/ Sodium 250 mls @ 250 mls/hr 12/12/19 13:00 12/12/19 13 :39 Chloride IVPB 250 mls 0100,1300 DYLON Administration Ondansetron HCl 4 mg 12/10/19 22:44 12/11/19 06:59 Zofran Odt PO 4 mg Q6H PRN Administration Nausea/Vomiting Ondansetron HCl 4 mg 12/10/19 22:44 12/11/19 10:28 Zofran IVP 4 mg Q6H PRN Administration Nausea/Vomiting Sodium Chloride 10 ml 12/11/19 09:00 12/12/19 08:17 Flush - Normal Saline IVF Not Given Q12HR DYLON - Exam General Appearance: NAD, ill appearing Eye: PERRL, anicteric sclera ENT: normocephalic atraumatic, moist mucosa Neck: supple, symmetric, no lymphadenopathy Heart: no murmur, no gallops, no rubs Respiratory: no rales, normal chest expansion, no tachypnea, rhonchi, wheezes Gastrointestinal: soft, non-tender Extremities: 1+ LE edema Skin: no lesions, no rashes Neurological: cranial nerve grossly intact, no focal deficits Musculoskeletal: no muscle wasting Psychiatric: normal affect, normal behavior, A&O x 3 Hosp A/P (1) Pulmonary embolism Code(s): I26.99 - OTHER PULMONARY EMBOLISM WITHOUT ACUTE COR PULMONALE Status : Acute (2) Shortness of breath Code(s): R06.02 - SHORTNESS OF BREATH Status: Acute (3) Abdominal pain Code(s): R10.9 - UNSPECIFIED ABDOMINAL PAIN Status: Acute (4) Lung metastases Code(s): C78.00 - SECONDARY MALIGNANT NEOPLASM OF UNSPECIFIED LUNG Status: Acute (5) Malignant neoplasm of esophagus Status: Acute (6) Metastases to the liver Code(s): C78.7 - SECONDARY MALIG NEOPLASM OF LIVER AND INTRAHEPATIC BILE DUCT Status: Acute (7) Nausea and vomiting Code(s): R11.2 - NAUSEA WITH VOMITING, UNSPECIFIED Status: Acute (8) Pneumonia due to COVID-19 virus Code(s): U07.1 - COVID-19; J12.89 - OTHER VIRAL PNEUMONIA Status: Acute - Plan Plan: medical unit with telemetry Hospice consultation, recommendations appreciated - Considering home hospice Palliative care consultation, recommendations appreciated cardiovascular thoracic surgery consultation, recommendations appreciated oncology consultation, recommendations appreciated patient with groundglass opacities on CT chest concerning for covid patient's is actively sick with covid positive Negative nucleic acid covid test Negative covid antibody CT angiography of the chest noted will need full dose anticoagulation for pulmonary embolism, held until evaluated by surgery has had Pleurx catheter in the past, now removed, with loculated pleural effusion pericardial effusion supplemental oxygen as needed to maintain O2 saturation's IV antibiotics Consider steroids continue home medications as able blood pressure control blood sugar control G.I. prophylaxis DVT prophylaxis Disposition: palliative care/hospice to be involved. DNR/ DNI and out of hospital arrest paperwork now in place. Prognosis is poor despite maximal medical/ surgical therapy
[2019-12-12] MEDS ORDERED: Morphine IR Tab 15 MG TAB PO PRN (13:46)
--- NOTE | 2019-12-12 14:41 | PDOC.FMACP ---
Advance Care Planning - Problem (1) Palliative care encounter Status: Acute Code(s): Z51.5 - ENCOUNTER FOR PALLIATIVE CARE (2) Shortness of breath Status: Acute Code(s): R06.02 - SHORTNESS OF BREATH (3) Lung metastases Status: Acute Code(s): C78.00 - SECONDARY MALIGNANT NEOPLASM OF UNSPECIFIED LUNG (4) Malignant neoplasm of esophagus Status: Acute (5) Metastases to the liver Status: Acute Code(s): C78.7 - SECONDARY MALIG NEOPLASM OF LIVER AND INTRAHEPATIC BILE DUCT - Note Participants: patient, palliative care Summary: Palliative Care discussed Advanced Care Planning, allowed an opportunity to decline. The diagnosis, prognosis and goals of care were discussed. Appropriate forms and documentation to accomplish the goals of care were discussed. All questions were answered. Mrs Chase has elected to transition to a DNAR and completed the OOHNAR. Discussed Directive to physician, patient is electing to transition to Hospice care. Please also refer to [facility] Palliative notes in note section Time Spent (mins): 20
--- NOTE | 2019-12-12 14:46 | PDOC.PALPN ---
Palliative Progress Note - Subjective Awake, alert. Confirmed Dr Dubon addressed resuscitation status and terminal condition. - Objective Vital Signs: Vital Signs - Most Recent Temp Pulse Resp BP Pulse Ox 97.3 F L 93 18 90/71 99 12/12/19 12:47 12/12/19 12:47 12/12/19 12:47 12/12/19 12:47 12/12/19 12:47 - Physical Exam Constitutional: ill appearing HEENT: EOMI, moist MMs, sclera anicteric Respiratory: no wheezing, unlabored breathing Cardiovascular: RRR Gastrointestinal: continent, soft Deviation from normal: mild tenderness Genitourinary: continent Musculoskeletal: edema present Neurology: moves all 4 limbs, no focal deficits Skin: cap refill <2 seconds Psychiatric: A&O x 3 - Assessment (1) Palliative care encounter Code(s): Z51.5 - ENCOUNTER FOR PALLIATIVE CARE Current Visit: Yes Status: Acute (2) Shortness of breath Code(s): R06.02 - SHORTNESS OF BREATH Current Visit: Yes Status: Acute (3) Lung metastases Code(s): C78.00 - SECONDARY MALIGNANT NEOPLASM OF UNSPECIFIED LUNG Current Visit: No Status: Acute (4) Malignant neoplasm of esophagus Current Visit: No Status: Acute (5) Metastases to the liver Code(s): C78.7 - SECONDARY MALIG NEOPLASM OF LIVER AND INTRAHEPATIC BILE DUCT Current Visit: No Status: Acute - Plan Plan: Visited at length in relation to cancer and metastatic disease. Goal is to be home with her children and grandchildren. Strong family support, however she is concerned in relation to how her children will cope with her decision to transition to hospice. She has had [employer] (her sister works for them ) but requested to "interview" 3 hospices and select one. [facility] completed choice letter and relayed to CM. Discussed symptom management in home setting and services Hospice offers in the home setting. Emotional support and Therapeutic listening offered to Ms Chase. Please also refer to [facility] Gonzalez notes in note section. Kyree Arguelles [employer]IVER aware. [30] minutes spent on this encounter with >50% of the time in counseling and coordination of care. - ROS Constitutional: alert, weakness ENT: dry mouth Respiratory: shortness of breath with extertion Cardiology: other (denies chest pain or palpitations) Gastrointestinal: other (mild tenderness with palpitation, denies nausea, vomiting. ) Genitourinary: other (negative for dysuria) Musculoskeletal: back pain Neurological: confusion Psychological: other
[2019-12-12 14:51] LABS: SARS-CoV-2 MS2 Positive; SARS-CoV-2 N Gene Negative; SARS-CoV-2 S Gene Negative; SARS-CoV-2 by NAA Not Detected (NotDetected); SARS-CoV-2 orf1ab Negative
[2019-12-12] MEDS ORDERED: Morphine 2 MG/ML VIAL SLOW IVP PRN (14:56)
[2019-12-12 15:24] VITALS: BP 86/62; TEMP 97.6
--- NOTE | 2019-12-13 14:44 | DIS ---
DATE OF ADMISSION: 12/10/2019 DATE OF DISCHARGE: 12/12/2019 REASON FOR HOSPITALIZATION: Shortness of breath. PROCEDURES PERFORMED AND TREATMENTS RENDERED: Ms. Chase is an unfortunate 49-year-old female with a past medical history of known metastatic esophageal carcinoma, who has previously undergone surgical therapy, chemotherapy, and despite this, she has continued to decline. With the patient's shortness of breath, there was concern of COVID. The patient's who is COVID positive. At the time, may have transmitted this virus unintentionally to his as he is a embosser apprentice of hers. The patient had several COVID tests, these were all found to be negative. The patient had CT angiography of the chest, please see full report for details. The patient has numerous pathology with her chest, please see full radiographic image report for details. The patient is having evidence of a chronic pulmonary embolism in the right lower lobe. The patient is status post gastric pull-up or colonic interposition. The patient with large amount of posterior mediastinal fluid compressing and narrowing the pulmonary veins especially narrows the right atrium causing resistance and pulmonary venous return. The patient with a moderate to large pericardial effusion. The patient with a moderate-sized loculated left pleural effusion and a high-grade associated left lower lobe atelectasis. The patient with severe hepatic steatosis. The patient with large liver mass. The patient with anasarca and ascites. The patient also with multifocal patchy ground-glass infiltrates in the anterior segment of the right upper lobe, which may be slightly worse. This is suspicious for COVID-19 pneumonia. Because of these numerous pathology, the Cardiovascular Thoracic Surgery consultation was requested; however, the patient telling myself, Oncology, and Palliative Care, with that she is not interested in any surgical efforts. The patient is interested in symptom management. With efforts through discussing with Oncology, the patient has end-stage metastatic esophageal carcinoma, and there is no more medical or surgical interventions that can be done, and she was best suited pursuing hospice. The patient meeting with Palliative Care, and her code status was addressed. I personally discussed this code status with the patient, and she tells me that she would not want to be kept alive artificially on machines, knowing that it would only cause her unnecessary pain and suffering, and would not change her ultimate outcome. The patient understands she is going to . The patient wants to in the home setting, surrounded by her loved ones. Treatment strategies were adjusted, and the patient's symptom management was considered. Hospice was consulted, and the patient accepting to a hospice company, was recommended safe for discharge immediately to home hospice. CONDITION ON DISCHARGE: Guarded. SPECIFIC INSTRUCTIONS FOR THE PATIENT/FAMILY: 1. The patient is recommended safe for transfer to home hospice immediately. 2. The patient is recommended to have all future medical issues addressed by home hospice. 3. The patient is recommended to have adequate pain control. 4. The patient is recommended to have adequate control of nausea and vomiting. 5. The patient is recommended to have symptoms monitored daily and medications adjusted as appropriate by hospice physician. DISCHARGE MEDICATIONS: Please see full discharge medication list for details. TIME SPENT: Greater than 35 minutes spent coordinating care and discharge process for this patient. Job ID: [id number]
--- NOTE | 2019-12-13 22:55 | PQF ---
CLINICAL DOCUMENTATION CLARIFICATION FORM: Dear : Nelson. Drummond Date / Time: 12/13/19 1958 Please exercise your independent, professional judgment in responding to the clarification form. Clinical indicators are provided on the bottom of this form for your review Please check appropriate box(es): [ ] Covid 19 Pneumonia [ ] Aspiration Pneumonia [ ] Empirically treating Gram Negative Pneumonia [ ] Empirically treating Anaerobic Pneumonia [ ] Simple Pneumonia [ ] Pneumonia of unknown etiology [ ] Other diagnosis [ ] Unable to determine Physician Signature: Date/Time: For continuity of documentation, please document condition throughout progress notes and discharge summary. Thank You. 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 12/05 for suspected Covid 19 viral Pneumonia h H&P p1 12/09 Dr Lebron [X] noticed increasing Kathy H&P p1 12/09 Dr Lebron [X] Lower lobe pneumonia H&P p4 12/09 Dr Lebron [X] Nausea and Vomiting H&P p4 12/09 Dr Lebron [X] gProbably some component of aspirationh Consult p2 12/10 DR Osman [X] gSuspicious for Covid-19 Pneumonia DS p1 12/11 Dr Dubon Present Risk Factors Results and Location in Medical Record [X] Hx of Covid 19 Pneumonia H&P p1 12/09 Dr Lebron [X] Metastatic Esophageal carcinoma H&P p1 12/09 Dr Lebron [X] Hx of tobacco use H&P p1 12/09 Dr Lebron [X] GERD H&P p1 12/09 Dr Lebron [X] Pericardial Effusion H&P p3 12/09 Dr Lebron [X] Chronic PE H&P p4 12/09 Dr Lebron [X] Lower lobe pneumonia H&P p4 12/09 Dr Lebron Present Treatments Results and Location in Medical Record [X] IV Cefepime 2 gm JUL 26 [X] IVF NS 1L JUL 26 [X] IV Vancomycin 1 gm JUL 26 [X] SARS-CoV2 Rap RNA Microbiology 12/09 [X] Covid-19 PCR Microbiology 12/10 [X] SARS Cov-2 IgG Ab Microbiology 12/10 [X] SARS Cov-2 IgG Ab Index Microbiology 12/10 [X] Chest X-ray 12/09 Imaging 12/09 dr Khoury [X] Respiratory Consult Consult Yousuf Guzman 12/10 CDS/Laborer [employer] Signature: Mirian Campuzano Julius Phone #: ext [phone] Date/Time: 12/13/19 6624 This is a permanent part of the Medical Record [facility]
--- NOTE | 2019-12-13 22:56 | PQF ---
CLINICAL DOCUMENTATION CLARIFICATION FORM: Dear : Nelson. Drummond Date / Time: 12/13/19 7374 Please exercise your independent, professional judgment in responding to the clarification form. Clinical indicators are provided on the bottom of this form for your review Please check appropriate box(es): [ ] Sepsis due to Pneumonia [ ] Localized infection without sepsis [ ] Other diagnosis [ ] Unable to determine In addition, please specify: Present on Admission (POA): [ ] Yes [ ] No [ ] Unable to determine Physician Signature: Date/Time: For continuity of documentation, please document condition throughout progress notes and discharge summary. Thank You. To be completed by CDI/Coding staff for physician review: Present Clinical Indicators - Signs / Symptoms / Labs Results and Location in Medical Record [X] WBC 10.2, Plt count 158, Band 21, Neutrophils 70 Laboratory Hematology 12/09 [X] SARS-CoV2 Rap RNA-not detected Microbiology 12/09 [X] Covid-19 PCR-not detected Microbiology 12/10 [X] SARS Cov-2 IgG Ab- not detected Microbiology 12/10 [X] SARS Cov-2 IgG Ab Index- 0.07 Microbiology 12/10 [X] COKEMAN 94/54, Pulse 100, Resp 18, Temp 97.7 Vital signs 12/09 [X] SIRS Scoring: Yes pt did meet at least 1 criteria ED notes p4 12/09 [X] grecently admitted from 12/03 ? 12/05 for suspected Covid 19 viral Pneumonia h H&P p1 12/09 Dr Lebron [X] gnoticed increasing Kathy H&P p1 12/09 Dr Lebron [X] Lower lobe pneumonia H&P p4 12/09 Dr Lebron [X] Nausea and Vomiting H&P p4 12/09 Dr Lebron [X] Hypotension H&P p4 12/09 Dr Lebron [X] gProbably some component of aspirationh Consult p2 12/10 DR Osman [X] gSuspicious for Covid-19 Pneumonia DS p1 12/11 Dr Dubon Present Risk Factors Results and Location in Medical Record [X] Hx of Covid 19 Pneumonia H&P p1 12/09 Dr Lebron [X] Metastatic Esophageal carcinoma H&P p1 12/09 Dr Lebron [X] Hx of tobacco use H&P p1 12/09 Dr Lebron [X] GERD H&P p1 12/09 Dr Lebron [X] Pericardial Effusion H&P p3 12/09 Dr Lebron [X] Chronic PE H&P p4 12/09 Dr Lebron [X] Lower lobe pneumonia H&P p4 12/09 Dr Lebron Present Treatments Results and Location in Medical Record [X] IV Cefepime 2 gm JUL 26 [X] IVF NS 1L JUL 26 [X] IV Vancomycin 1 gm JUL 26 [X] SARS-CoV2 Rap RNA Microbiology 12/09 [X] Covid-19 PCR Microbiology 12/10 [X] SARS Cov-2 IgG Ab Microbiology 12/10 [X] SARS Cov-2 IgG Ab Index Microbiology 12/10 [X] Chest X-ray 12/09 Imaging 12/09 dr Khoury [X] Respiratory Consult Consult Yousuf Guzman 12/10 CDS/Technology Applications Engineer Signature: Mirian [place] Phone #: ext [phone] Date/Time: 12/13/19 6390 This is a permanent part of the Medical Record [facility]
== END 2019-12-12 18:45 | disposition hospice, home (50) | DRG 193 ==
LOC: ERS 13:41 → ERHOLD 19:44 → 2SW 12-11 17:03
PROVIDERS: ADMIT Internal Medicine; ATTEND Internal Medicine
DX: J18.9 Pneumonia, unspecified organism (principal); J98.59 Other diseases of mediastinum, not elsewhere classified; C15.9 Malignant neoplasm of esophagus, unspecified; I27.82 Chronic pulmonary embolism; J98.11 Atelectasis; I31.3 Pericardial effusion (noninflammatory); C78.7 Secondary malignant neoplasm of liver and intrahepatic bile duct; C78.00 Secondary malignant neoplasm of unspecified lung; I87.1 Compression of vein; Z66 Do not resuscitate; Z51.5 Encounter for palliative care; Z20.828 Contact with and (suspected) exposure to other viral communicable diseases; K21.9 Gastro-esophageal reflux disease without esophagitis; Z86.19 Personal history of other infectious and parasitic diseases; I95.9 Hypotension, unspecified; Z90.710 Acquired absence of both cervix and uterus; Z79.899 Other long term (current) drug therapy; Z87.891 Personal history of nicotine dependence
CPT/HCPCS: 36415; 71045; 71275; 80053; 80202; 81003; 81015; 82550; 83605; 83690; 83735; 83880; 84484; 84703; 85007; 85025; 85027; 86769; 87635; 93005; 93970; J0692; J1650; J2270; J2405; J2550; J3370; J3490; J7050; Q0162; Q0167; Q9967; U0002; U0003